=== PATIENT | female | born 1975 | race Caucasian/White ===

== ENCOUNTER 2016-12-13 06:56 | Emergency (ER) | payer OTHER ==
[2016-12-13] MEDS ORDERED: HYDROmorphone 1 MG/ML 1 ML SYRINGE IM STA (07:29)
[2016-12-13] MEDS ORDERED: IBUPROFEN 600 MG TAB PO STA (07:29)
[2016-12-13] MEDS ORDERED: ONDANSETRON 4 MG/2 ML VIAL IM STA (07:29)
--- NOTE | 2016-12-13 07:30 | ED ---
General Adult HPI - General Chief complaint: Extremity Injury, Lower Stated complaint: fall Time Seen by Provider: 12/13/16 07:00 Source: patient, family, RN notes reviewed Mode of arrival: wheelchair Limitations: physical limitation - History of Present Illness Initial comments: This is a 41-year-old female presents emergency room complaining of left ankle pain. Patient states she twisted it yesterday at in her daughter's driveway. Patient states she slipped and twisted it medially. The swelling occurred on the lateral aspect is very tender to touch. Patient denies any foot pain patient denies any hip or any other pain. - Related Data Home Medications Medication Instructions Recorded Confirmed Citalopram Hydrobromide [CeleXA] 20 mg PO DAILY 12/25/13 12/25/13 Methylphenidate HCl [Ritalin] 10 mg PO AC-TID 12/25/13 12/25/13 risperiDONE [RisperDAL] 2 mg PO DAILY 12/25/13 12/25/13 Previous Rx's Medication Instructions Recorded Hydrocodone/Acetaminophen [[place] 1 each PO Q4HR PRN #20 tab 12/13/16 5-325] Ibuprofen [Motrin] 600 mg PO Q6HR PRN #20 tab 12/13/16 Allergies Allergy/AdvReac Type Severity Reaction Status Date / Time codeine Allergy Nausea & Verified 12/13/16 07:05 Vomiting Review of Systems ROS Statement: Those systems with pertinent positive or pertinent negative responses have been documented in the HPI. ROS Other: All systems not noted in ROS Statement are negative. Past Medical History Past Medical History: No Reported History History of Any Multi-Drug Resistant Organisms: None Reported Past Surgical History: Section Past Psychological History: Anxiety, Depression Smoking Status: Current every day smoker Past Alcohol Use History: Rare Past Drug Use History: None Reported General Exam - General Exam Comments Initial Comments: GENERAL Patient is well-developed and well-nourished. Patient is in mild distress. EYES Patient's pupils are equal and round. Extraocular motion is intact SKIN Unremarkable NEURO The patient is alert and oriented 3 PYSCH Patient has normal interpersonal interactions. MUSCULOSKELETAL Patient's ankle is tender to on the lateral malleolus and swollen. Limitations: physical limitation Course Vital Signs 12/13/16 07:01 Temperature 98.3 F Pulse Rate 84 Respiratory 16 Rate Blood Pressure 124/79 O2 Sat by Pulse 98 Oximetry Procedures - Orthopedic Splinting/Casting Injury #1 Side: left Lower Extremity Injury Location: ankle Lower Extremity Immobilizer: posterior splint (This is a short leg splint) Medical Decision Making - Medical Decision Making Patient's x-ray shows a distal fibula fracture on the lateral malleolus Disposition Clinical Impression: Fracture of fibula, distal Disposition: HOME SELF-CARE Condition: Good Instructions: Ankle Fracture (ED) Additional Instructions: Patient should follow-up with orthopedics. Prescriptions: Hydrocodone/Acetaminophen [[place] 5-325] 1 each PO Q4HR PRN #20 tab PRN Reason: Pain Ibuprofen [Motrin] 600 mg PO Q6HR PRN #20 tab PRN Reason: For pain Referrals: Gorge Alvarez MD [Primary Care Provider] - 1-2 days
--- NOTE | 2016-12-13 08:24 | XR ---
EXAMINATION TYPE: XR ankle complete LT , 3 VIEWS DATE OF EXAM ORDERED: 12/13/2016 HISTORY: Pain. COMPARISON: None. FINDINGS: There is moderate soft tissue swelling adjacent to the lateral malleolus. There is a sligh t cortical irregularity involving the distal fibula. No definite cortical break is seen. No joint eff usion is seen. There is a small, plantar calcaneal spur. IMPRESSION: 1. SOFT TISSUE SWELLING. 2. MILD CORTICAL IRREGULARITY ADJACENT TO THE DISTAL FIBULA. PLEASE CORRELATE CLINICALLY TO EXCLUDE A N UNDISPLACED FRACTURE. 3. PLANTAR CALCANEAL SPUR.
[2016-12-13 08:48] VITALS: BP 113/61; PULSE 70; RESP 18; TEMP 98
== END 2016-12-13 08:48 | disposition home or self-care (01) ==
LOC: EC 06:56
DX: S82.65XA Nondisplaced fracture of lateral malleolus of left fibula, initial encounter for closed fracture (principal); F32.9 Major depressive disorder, single episode, unspecified; F41.9 Anxiety disorder, unspecified; F17.200 Nicotine dependence, unspecified, uncomplicated; Z79.899 Other long term (current) drug therapy; Z88.5 Allergy status to narcotic agent; W19.XXXA Unspecified fall, initial encounter
CPT/HCPCS: 99283 ×2; 29515 ×2; 96372 ×3; 73610; J2405; J1170

== ENCOUNTER 2017-04-19 07:27 | Observation (INO) | payer OTHER ==
[2017-04-19] MEDS ORDERED: ASPIRIN 81 MG PO STA (07:57)
[2017-04-19] MEDS ORDERED: NITROGLYCERIN SL TABS 0.4 MG TAB SUBLINGUAL STA ×3 (07:57)
--- NOTE | 2017-04-19 07:59 | ED ---
General Adult HPI - General Chief complaint: Chest Pain Stated complaint: CHEST TIGHT Time Seen by Provider: 04/19/17 07:53 Source: patient, RN notes reviewed Mode of arrival: wheelchair Limitations: no limitations - History of Present Illness Initial comments: Patient is a pleasant 41-year-old female presenting to the emergency department complaining of chest discomfort. Onset of symptoms was a couple of days ago. Symptoms seemed to improve yesterday and then returned again this morning. Patient has pressure in her chest. No radiation. There is some associated dyspnea and lightheadedness and nausea. No vomiting. No diaphoresis. Symptoms do worsen with exertion. No history of similar symptoms previously. - Related Data Home Medications Medication Instructions Recorded Confirmed Methylphenidate HCl [Ritalin] 10 mg PO AC-TID 12/25/13 04/19/17 ALPRAZolam [Xanax] 0.5 mg PO TID PRN 04/19/17 04/19/17 QUEtiapine [SEROquel] 50 mg PO HS 04/19/17 04/19/17 Previous Rx's Medication Instructions Recorded Ibuprofen [Motrin] 600 mg PO Q6HR PRN #20 tab 12/13/16 Allergies Allergy/AdvReac Type Severity Reaction Status Date / Time codeine Allergy Nausea & Verified 04/19/17 08:10 Vomiting Review of Systems ROS Statement: Those systems with pertinent positive or pertinent negative responses have been documented in the HPI. ROS Other: All systems not noted in ROS Statement are negative. Constitutional: Denies: fever Eyes: Denies: eye pain ENT: Denies: ear pain Respiratory: Reports: dyspnea Cardiovascular: Reports: chest pain Endocrine: Denies: fatigue Gastrointestinal: Reports: nausea. Denies: abdominal pain, vomiting Genitourinary: Denies: dysuria Musculoskeletal: Denies: back pain Skin: Denies: rash Neurological: Denies: weakness Past Medical History Past Medical History: No Reported History History of Any Multi-Drug Resistant Organisms: None Reported Past Surgical History: Section Past Psychological History: Anxiety, Depression Smoking Status: Current every day smoker Past Alcohol Use History: Rare Past Drug Use History: None Reported General Exam Limitations: no limitations General appearance: alert, in no apparent distress Head exam: Present: atraumatic Eye exam: Present: normal appearance, PERRL ENT exam: Present: normal oropharynx Neck exam: Present: normal inspection Respiratory exam: Present: normal lung sounds bilaterally. Absent: chest wall tenderness Cardiovascular Exam: Present: regular rate, normal rhythm Expanded Peripheral pulses: 2+: Radial (R), Radial (L), Dorsalis Pedis (R), Dorsalis Pedis (L) GI/Abdominal exam: Present: soft. Absent: tenderness Extremities exam: Present: normal inspection. Absent: pedal edema, calf tenderness Neurological exam: Present: alert Psychiatric exam: Present: normal affect, normal mood Skin exam: Present: normal color Course Vital Signs 04/19/17 04/19/17 07:33 08:40 Temperature 97.0 F L Pulse Rate 85 66 Respiratory 18 18 Rate Blood Pressure 145/70 116/70 O2 Sat by Pulse 100 100 Oximetry EKG Findings - EKG Comments: EKG Findings:: Sinus rhythm 74. MA 106. QRS 86. QT 412. QTC 457. Normal axis. No acute ST change. Normal QRS. Medical Decision Making - Medical Decision Making Patient reevaluated and resting comfortably in bed. Symptoms have improved however not completely resolved and are mild at this time following nitroglycerin. Patient and family updated on results and plan. Case was discussed in detail with Dr. Alvarez, who will admit his patient. - Lab Data Result diagrams: 04/19/17 08:00 04/19/17 08:00 Lab Results 04/19/17 04/19/17 04/19/17 Range/Units 08:00 08:00 08:00 WBC 9.9 (3.8-10.6) k/uL RBC 4.53 (3.80-5.40) m/uL Hgb 14.2 (11.4-16.0) gm/dL Hct 44.1 (34.0-46.0) % MCV 97.6 (80.0-100.0) fL MCH 31.4 (25.0-35.0) pg MCHC 32.2 (31.0-37.0) g/dL RDW 12.4 (11.5-15.5) % Plt Count 313 (150-450) k/uL Neutrophils % 79 % Lymphocytes % 15 % Monocytes % 4 % Eosinophils % 1 % Basophils % 0 % Neutrophils # 7.8 H (1.3-7.7) k/uL Lymphocytes # 1.5 (1.0-4.8) k/uL Monocytes # 0.4 (0-1.0) k/uL Eosinophils # 0.1 (0-0.7) k/uL Basophils # 0.0 (0-0.2) k/uL PT (9.0-12.0) sec INR (<1.2) APTT (22.0-30.0) sec D-Dimer (<0.60) mg/L FEU Sodium 141 (137-145) mmol/L Potassium 4.1 (3.5-5.1) mmol/L Chloride 107 (98-107) mmol/L Carbon Dioxide 20 L (22-30) mmol/L Anion Gap 14 mmol/L BUN 14 (7-17) mg/dL Creatinine 0.63 (0.52-1.04) mg/dL Est GFR (MDRD) Af Amer >60 (>60 ml/min/1.73 sqM) Est GFR (MDRD) Non-Af >60 (>60 ml/min/1.73 sqM) Glucose 98 (74-99) mg/dL Calcium 9.7 (8.4-10.2) mg/dL Magnesium 1.9 (1.6-2.3) mg/dL Total Bilirubin 0.4 (0.2-1.3) mg/dL AST 16 (14-36) U/L ALT 20 (9-52) U/L Alkaline Phosphatase 111 (38-126) U/L Total Creatine Kinase 63 (30-135) U/L CK-MB (CK-2) 0.2 (0.0-2.4) ng/mL CK-MB (CK-2) Rel Index 0.3 Troponin I <0.012 (0.000-0.034) ng/mL NT-Pro-B Natriuret Pep pg/mL Total Protein 7.3 (6.3-8.2) g/dL Albumin 4.2 (3.5-5.0) g/dL 04/19/17 04/19/17 Range/Units 08:00 08:00 WBC (3.8-10.6) k/uL RBC (3.80-5.40) m/uL Hgb (11.4-16.0) gm/dL Hct (34.0-46.0) % MCV (80.0-100.0) fL MCH (25.0-35.0) pg MCHC (31.0-37.0) g/dL RDW (11.5-15.5) % Plt Count (150-450) k/uL Neutrophils % % Lymphocytes % % Monocytes % % Eosinophils % % Basophils % % Neutrophils # (1.3-7.7) k/uL Lymphocytes # (1.0-4.8) k/uL Monocytes # (0-1.0) k/uL Eosinophils # (0-0.7) k/uL Basophils # (0-0.2) k/uL PT 9.9 (9.0-12.0) sec INR 1.0 (<1.2) APTT 22.2 (22.0-30.0) sec D-Dimer 0.25 (<0.60) mg/L FEU Sodium (137-145) mmol/L Potassium (3.5-5.1) mmol/L Chloride (98-107) mmol/L Carbon Dioxide (22-30) mmol/L Anion Gap mmol/L BUN (7-17) mg/dL Creatinine (0.52-1.04) mg/dL Est GFR (MDRD) Af Amer (>60 ml/min/1.73 sqM) Est GFR (MDRD) Non-Af (>60 ml/min/1.73 sqM) Glucose (74-99) mg/dL Calcium (8.4-10.2) mg/dL Magnesium (1.6-2.3) mg/dL Total Bilirubin (0.2-1.3) mg/dL AST (14-36) U/L ALT (9-52) U/L Alkaline Phosphatase (38-126) U/L Total Creatine Kinase (30-135) U/L CK-MB (CK-2) (0.0-2.4) ng/mL CK-MB (CK-2) Rel Index Troponin I (0.000-0.034) ng/mL NT-Pro-B Natriuret Pep 299 pg/mL Total Protein (6.3-8.2) g/dL Albumin (3.5-5.0) g/dL - Radiology Data Radiology results: image reviewed (Chest x-ray shows no acute process.) Disposition Clinical Impression: Chest pain Disposition: ADMITTED IP TO THIS [facility] Referrals: Gorge Alvarez MD [Primary Care Provider] - 1-2 days Decision Time: 09:21
[2017-04-19 08:12] LABS: Basophils % (A) 0 %; Eosinophils # (A) 0.1 k/uL (0-0.7); Eosinophils % (A) 1 %; HCT 44.1 % (34.0-46.0); HGB 14.2 gm/dL (11.4-16.0); Lymphocytes # (A) 1.5 k/uL (1.0-4.8); Lymphocytes % (A) 15 %; MCH 31.4 pg (25.0-35.0); MCHC 32.2 g/dL (31.0-37.0); MCV 97.6 fL (80.0-100.0); Mean Platelet Volume 7.5; Monocytes # (A) 0.4 k/uL (0-1.0); Monocytes % (A) 4 %; Neutrophils # (A) 7.8 k/uL (1.3-7.7); Neutrophils % (A) 79 %; Platelet Count 313 k/uL (150-450); RBC 4.53 m/uL (3.80-5.40); RDW 12.4 % (11.5-15.5); WBC 9.9 k/uL (3.8-10.6)
--- NOTE | 2017-04-19 08:25 | XR ---
EXAMINATION TYPE: XR chest 2V DATE OF EXAM: 04/19/2017 COMPARISON: NONE HISTORY: Chest pain, chest tightness and dizziness. TECHNIQUE: Frontal and lateral views of the chest are obtained. FINDINGS: There is no focal air space opacity, pleural effusion, or pneumothorax seen. The cardiac silhouette size is within normal limits. The osseous structures are intact. IMPRESSION: No acute cardiopulmonary process.
[2017-04-19 08:27] LABS: ALT 20 U/L (9-52); AST 16 U/L (14-36); Albumin 4.2 g/dL (3.5-5.0); Alkaline Phosphatase 111 U/L (38-126); Anion Gap 14 mmol/L; Blood Urea Nitrogen 14 mg/dL (7-17); Calcium 9.7 mg/dL (8.4-10.2); Carbon Dioxide 20 mmol/L (22-30); Chloride 107 mmol/L (98-107); Glucose 98 mg/dL (74-99); Magnesium 1.9 mg/dL (1.6-2.3); Sodium 141 mmol/L (137-145); Total Bilirubin 0.4 mg/dL (0.2-1.3); Total Protein 7.3 g/dL (6.3-8.2)
[2017-04-19 08:31] LABS: Potassium 4.1 mmol/L (3.5-5.1)
[2017-04-19 08:40] LABS: Creatine Kinase 63 U/L (30-135); D-Dimer 0.25 mg/L FEU (<0.60); Partial Thromboplastin Time 22.2 sec (22.0-30.0); Prothrombin Time 9.9 sec (9.0-12.0)
[2017-04-19 08:53] LABS: Creatine Kinase MB 0.2 ng/mL (0.0-2.4); Troponin I <0.012 ng/mL (0.000-0.034)
[2017-04-19] MEDS ORDERED: NITROGLYCERIN SL TABS 0.4 MG TAB SUBLINGUAL PRN (09:21)
[2017-04-19 14:43] LABS: Creatine Kinase 47 U/L (30-135)
[2017-04-19 14:54] LABS: Troponin I <0.012 ng/mL (0.000-0.034)
[2017-04-19 14:58] LABS: Creatine Kinase MB <0.2 ng/mL (0.0-2.4)
[2017-04-19] MEDS ORDERED: IBUPROFEN 600 MG TAB PO PRN (15:11)
[2017-04-19] MEDS: NITROGLYCERIN OINT 1 INCH/GM PACKET TOPICAL SCH ×3 (16:54→23:05)
[2017-04-19] MEDS: METHYLPHENIDATE HCL 10 MG TAB PO SCH (17:51)
[2017-04-19] MEDS: ALPRAZolam 0.5 MG TAB PO PRN (19:27)
[2017-04-19 21:20] LABS: Creatine Kinase 47 U/L (30-135)
[2017-04-19 21:32] LABS: Creatine Kinase MB <0.2 ng/mL (0.0-2.4); Troponin I <0.012 ng/mL (0.000-0.034)
[2017-04-19] MEDS ORDERED: ZOLPIDEM 5 MG TAB PO PRN (22:49)
[2017-04-20 04:14] LABS: Cholesterol 195 mg/dL (<200); HDL Cholesterol 59 mg/dL (40-60); LDL Cholesterol,Calculated 121 mg/dL (0-99); Triglycerides 76 mg/dL (<150)
[2017-04-20] MEDS: NITROGLYCERIN OINT 1 INCH/GM PACKET TOPICAL SCH ×2 (05:59→13:22)
--- NOTE | 2017-04-20 07:26 | P.HPIM ---
History of Present Illness H&P Date: 04/20/17 Chief Complaint: Chest pain This is a history of physical and 41-year-old white female who 2-3 days ago was having some intermittent dizziness. 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 However, yesterday, before trying to go to work she had significant substernal chest pressure. No radiation but there was significant statement that the patient felt that there was "elephant" on her chest. The patient had some chills and some mild nausea at that point. No complaint radiation of the pain. She does not state that it one to the left shoulder. However, she is a smoker and has significant family history of premature heart disease in her father who had myocardial infraction at age of 45. We had a long discussion regarding her smoking cessation. ER evaluation did not show overt enzymatic elevation but her pain was relieved by nitroglycerin. Review of Systems Constitutional: Denies chills, Denies fever Eyes: denies blurred vision, denies pain Ears, nose, mouth and throat: Denies headache, Denies sore throat Cardiovascular: Reports chest pain, Denies leg edema Respiratory: Denies cough Gastrointestinal: Denies abdominal pain, Denies diarrhea, Denies nausea, Denies vomiting Musculoskeletal: Denies myalgias Integumentary: Denies pruritus, Denies rash Past Medical History Past Medical History: No Reported History History of Any Multi-Drug Resistant Organisms: None Reported Past Surgical History: Section Additional Past Surgical History / Comment(s): [place] teeth extractions Additional Past Anesthesia/Blood Transfusion Reaction / Comment(s): Pt has never had general anesthesia. Smoking Status: Current every day smoker - Past Family History Mother Additional Family Medical History / Comment(s): Mother has "heart problems". Heart disease runs in the females on mother's side of family. Father Family Medical History: Myocardial Infarction (CA) Additional Family Medical History / Comment(s): Father had a CA at the age of 45yrs. Medications and Allergies Home Medications Medication Instructions Recorded Confirmed Type Methylphenidate HCl [Ritalin] 10 mg PO AC-TID 12/25/13 04/19/17 History Ibuprofen [Motrin] 600 mg PO Q6HR PRN #20 tab 12/13/16 04/19/17 Rx ALPRAZolam [Xanax] 0.5 mg PO TID PRN 04/19/17 04/19/17 History QUEtiapine [SEROquel] 50 mg PO HS 04/19/17 04/19/17 History Allergies Allergy/AdvReac Type Severity Reaction Status Date / Time codeine Allergy Nausea & Verified 04/19/17 08:10 Vomiting Physical Exam Vitals: Vital Signs Temp Pulse Pulse Resp BP BP Pulse Ox 04/20/17 03:57 18 04/20/17 03:55 98.2 F 67 18 103/55 99 04/20/17 00:00 18 04/19/17 22:59 62 18 110/56 99 04/19/17 20:00 18 04/19/17 19:47 98.2 F 58 L 18 115/54 98 04/19/17 15:51 97.8 F 60 17 105/57 98 04/19/17 12:21 97.9 F 70 18 104/57 100 04/19/17 12:00 97.0 F L 61 18 90/57 100 04/19/17 11:58 97.0 F L 61 18 90/57 100 04/19/17 11:00 63 18 108/72 98 04/19/17 09:34 55 L 18 136/73 100 04/19/17 08:40 66 18 116/70 100 04/19/17 07:33 97.0 F L 85 18 145/70 100 Intake and Output 04/19/17 04/20/17 04/20/17 22:59 06:59 14:59 Intake Total 240 Balance 240 Intake: Oral 240 Other: Voiding Method Toilet Toilet # Voids 1 1 - Constitutional General appearance: no acute distress - EENT Eyes: EOMI - Neck Neck: no lymphadenopathy - Respiratory Respiratory: bilateral: CTA - Cardiovascular Rhythm: regular Abnormal Heart Sounds: no S3 Gallop - Gastrointestinal General gastrointestinal: no organomegaly, soft, no tenderness - Integumentary Integumentary: no cellulitis - Neurologic Neurologic: CNII-XII intact, focal deficits Results CBC & Chem 7: 04/19/17 08:00 04/19/17 08:00 Labs: Abnormal Lab Results - Last 24 Hours (Table) 04/19/17 04/19/17 04/19/17 Range/Units 08:00 08:00 08:00 Neutrophils # 7.8 H (1.3-7.7) k/uL Carbon Dioxide 20 L (22-30) mmol/L LDL Cholesterol, Calc 121 H (0-99) mg/dL Thrombosis Risk Factor Assmnt - Choose All That Apply Any of the Below Risk Factors Present?: Yes Each Factor Represents 1 point: Age 41-60 years Other Risk Factors: No Other congenital or acquired thrombophilia - If yes, enter type in comment: No Thrombosis Risk Factor Assessment Total Risk Factor Score: 1 Thrombosis Risk Factor Assessment Level: Low Risk Assessment and Plan (1) Unstable angina Current Visit: Yes Status: Acute Code(s): I20.0 - UNSTABLE ANGINA SNOMED Code(s): 4794401 (2) Cigarette nicotine dependence Current Visit: Yes Status: Acute Code(s): F17.210 - NICOTINE DEPENDENCE, CIGARETTES, UNCOMPLICATED SNOMED Code(s): 82064318 (3) Depression Current Visit: Yes Status: Acute Code(s): F32.9 - MAJOR DEPRESSIVE DISORDER , SINGLE EPISODE, UNSPECIFIED SNOMED Code(s): 39558814 Plan: Given her overall risk factors, question need for cardiac catheterization versus overt nuclear stress testing. Rule out myocardial infraction. Reconcile medications as necessary. See orders otherwise. Time with Patient: Greater than 30
[2017-04-20 07:38] VITALS: BP 97/46; PULSE 57; RESP 16; TEMP 98.1
[2017-04-20] MEDS ORDERED: ASPIRIN 325 MG TAB PO SCH (09:00)
[2017-04-20] MEDS ORDERED: DOBUTamine DRIP for NUC MED 250 MG in DEXTROSE/WATER 1 250ML.BAG IV ONE (09:50)
[2017-04-20] MEDS: METHYLPHENIDATE HCL 10 MG TAB PO SCH ×2 (11:04→13:22)
--- NOTE | 2017-04-20 11:50 | CONS ---
CONSULTATION Mrs. Perez is a 41-year-old female, who is seen for cardiac evaluation. Patient's medical records were reviewed. This patient has a history of depression, patient used to take Celexa before. Recently patient was changed to the Seroquel. Patient gives a history that for last 2 to 3 days she has been having intermittent dizziness and lightheadedness and since yesterday, she has been having intermittent chest discomfort. States the pain is in the substernal area. She feels like there is an elephant sitting on the chest, pain is not related to exertion. Patient has a family history of coronary artery disease and she smokes about half-pack per day. Denies any history of exertional discomfort. PAST MEDICAL HISTORY: Includes history of C-sections, no history of diabetes or hypertension. Patient's home medications include Ritalin, Motrin, Xanax and Seroquel. PHYSICAL EXAMINATION: At present reveals a 41-year-old female, who does not appear to be in any acute distress. Patient's blood pressure is 97/46 mmHg. HEENT examination is negative. Neck is supple. There is no increase in jugular venous pressure. Both the carotid pulses are felt. There is no bruit. Chest is symmetrical. Heart, the PMI is not felt. First and second heart sounds are normal. There is no evidence of any murmur. Lungs are clinically clear to auscultation and percussion. Abdomen is soft. Liver and spleen are not enlarged. Bowel sounds are heard. Extremities, peripheral pulsations are 2+. There is no evidence of any edema or phlebitis. Neurological examination is grossly normal. This patient's EKGs and cardiac enzymes are normal. FINAL IMPRESSION: Clinically, this patient's chest pains are atypical pain. Patient does have a family history of coronary artery disease. Patient's EKGs and cardiac enzymes are normal. Patient will be evaluated with echocardiogram and a stress echocardiographic study. We will also check the patient's lipid panel. If the stress test is negative, patient can be discharged home and we will follow her as an outpatient. MMODL / IJN: [id number] /
[2017-04-20] MEDS: ALPRAZolam 0.5 MG TAB PO PRN (12:05)
--- NOTE | 2017-04-20 12:26 | ECHOS ---
STRESS ECHOCARDIOGRAM INDICATIONS: Chest pain. BASELINE HEART RATE: 62 BASELINE BLOOD PRESSURE: 110/70 MAXIMUM HEART RATE: 150 MAXIMUM BLOOD PRESSURE: 176/100 85% MPHR: 150 100% MPHR: 177 MAXIMUM STAGE REACHED: 4 TOTAL EXERCISE TIME: 9:00 CLINICAL INFORMATION: Patient was given dobutamine infusion according to standard protocol. Peak heart rate of 150 was achieved. Maximum blood pressure 176/100 mmHg was noted. Resting EKG shows normal sinus rhythm with normal OR interval and QRS duration and normal ST-T waves. No ST-segment depression suggestive of ischemia is noted. The baseline echocardiographic images revealed normal left ventricular chamber size with normal left ventricular systolic function. At the peak dose of dobutamine infusion, normal increase in the wall thickness and contractility is noted. FINAL IMPRESSION: 1. This dobutamine stress echocardiographic study is negative for stress-induced ischemia. 2. EKG portion of the stress test is not suggestive of ischemia. MMODL / IJN: [id number] /
--- NOTE | 2017-05-04 18:40 | ECHOF ---
Referral Reason:chest pain MEASUREMENTS -------- HEIGHT: 170.2 cm WEIGHT: 72.6 kg BP: 110/70 RVIDd: 1.8 cm (< 3.3) IVSd: 1.0 cm (0.6 - 1.1) LVIDd: 4.5 cm (3.9 - 5.3) LVPWd: 1.1 cm (0.6 - 1.1) IVSs: 1.3 cm LVIDs: 2.0 cm LVPWs: 1.5 cm LAESV Index (A-L): 12.88 ml/m Ao Diam: 2.9 cm (2.0 - 3.7) AV Cusp: 1.8 cm (1.5 - 2.6) LA Diam: 2.3 cm (2.7 - 3.8) MV EXCURSION: 12.451 mm (> 18.000) MV EF SLOPE: 101 mm/s (70 - 150) EPSS: 0.8 cm MV E Mehul: 0.81 m/s MV DecT: 280 ms MV A Mehul: 0.53 m/s MV E/A Ratio: 1.53 RAP: 5.00 mmHg RVSP: 19.13 mmHg FINDINGS -------- Sinus rhythm. This was a technically adequate study. The left ventricular size is normal. Left ventricular wall thickness is normal. Overall left vent ricular systolic function is normal with, an EF between 55 - 60 %. The right ventricle is normal in size and function. Normal LA size by volume 22+/-6 ml/m2. The right atrium is normal in size. The aortic valve is trileaflet, and appears structurally normal. No aortic stenosis or regurgitation. The mitral valve is normal. There is trace mitral regurgitation. Trace tricuspid regurgitation present. Right ventricular systolic pressure is normal at < 35 mmHg. There is no evidence of pulmonary hypertension. The pulmonic valve is normal. The aortic root size is normal. Normal inferior vena cava with normal inspiratory collapse consistent with estimated right atrial pre ssure of 5 mmHg. The pericardium is normal. There is no pericardial effusion. CONCLUSIONS -------- 1. Sinus rhythm. 2. This was a technically adequate study. 3. The left ventricular size is normal. 4. Left ventricular wall thickness is normal. 5. Overall left ventricular systolic function is normal with, an EF between 55 - 60 %. 6. Normal LA size by volume 22+/-6 ml/m2. 7. The aortic valve is trileaflet, and appears structurally normal. No aortic stenosis or regurgitati on. 8. There is trace mitral regurgitation. 9. Trace tricuspid regurgitation present. 10. Right ventricular systolic pressure is normal at < 35 mmHg. 11. There is no evidence of pulmonary hypertension. 12. The aortic root size is normal. 13. There is no pericardial effusion. EXTRUDER TENDER: Arpit Crespo RDCS
--- NOTE | 2017-05-19 19:57 | P.DS ---
Providers Date of admission: 04/19/17 09:22 Attending physician: Gorge Avlarez Consults: 04/19/17 09:21 Consult Physician Urgent Consulting Provider: Vasyl Dupont Consult Reason/Comments: cp Do you want consulting provider notified?: Yes Primary care physician: Gorge Alvarez - Discharge Diagnosis(es) (1) Unstable angina Status: Acute (2) Cigarette nicotine dependence Status: Acute (3) Depression Status: Acute Hospital Course: This is a discharge from under 41-year-old white female who was essentially admitted for unstable angina. Appropriate cardiac testing was done and with cardiology assistance, the patient was discharged in stable condition to follow- up with me in about 1 week. We had a long discussion regarding tobacco cessation. She will is agreeable to try to decrease this habit. Again, the patient is discharged in stable condition after appropriate cardiac workup to follow-up with me in 7-10 days. Patient Condition at Discharge: Stable Plan - Discharge Summary Discharge Rx Participant: No New Discharge Prescriptions: No Action Methylphenidate HCl [Ritalin] 10 mg PO AC-TID Ibuprofen [Motrin] 600 mg PO Q6HR PRN #20 tab PRN Reason: For pain QUEtiapine [SEROquel] 50 mg PO HS ALPRAZolam [Xanax] 0.5 mg PO TID PRN PRN Reason: Anxiety Discharge Medication List Methylphenidate HCl [Ritalin] 10 mg PO AC-TID 12/25/13 [History] Ibuprofen [Motrin] 600 mg PO Q6HR PRN #20 tab 12/13/16 [Rx] ALPRAZolam [Xanax] 0.5 mg PO TID PRN 04/19/17 [History] QUEtiapine [SEROquel] 50 mg PO HS 04/19/17 [History] Follow up Appointment(s)/Referral(s): Gorge Alvarez MD [Primary Care Provider] - 1 Week [place] Snider MD [STAFF PHYSICIAN] - As Needed Patient Instructions/Handouts: Chest Pain (GEN) Discharge Disposition: HOME SELF-CARE
== END 2017-04-20 14:16 | disposition home or self-care (01) ==
LOC: EC 07:27 → 3OBS 09:22
PROVIDERS: ADMIT Family Medicine; ATTEND Family Medicine
DX: I20.0 Unstable angina (principal); F17.210 Nicotine dependence, cigarettes, uncomplicated; F32.9 Major depressive disorder, single episode, unspecified; Z79.899 Other long term (current) drug therapy; Z88.5 Allergy status to narcotic agent; F41.9 Anxiety disorder, unspecified; R68.83 Chills (without fever); Z82.49 Family history of ischemic heart disease and other diseases of the circulatory system
CPT/HCPCS: 99285; 36415; 93005; 93017; 93306; 93350; 85379; 83880; 80061; 80053; 82550; 82553; 83735; 84484; 85025; 85610; 85730; 71046; G0378 ×2; J1250

== ENCOUNTER 2019-09-15 11:05 | Emergency (ER) | payer OTHER ==
[2019-09-15 11:17] VITALS: TEMP 98.3
[2019-09-15] MEDS ORDERED: FAMOTIDINE 20 MG/2 ML VIAL IV STA (11:43)
[2019-09-15] MEDS ORDERED: SODIUM CHLORIDE 0.9% 1,000 ML IV STA (11:43)
[2019-09-15] MEDS ORDERED: diphenhydrAMINE 50 MG CAP PO STA (11:43)
[2019-09-15] MEDS ORDERED: LORazepam 2 MG/ML INJ IV STA (11:44)
--- NOTE | 2019-09-15 11:47 | ED ---
General Adult HPI - General Chief complaint: Allergic Reaction Stated complaint: vision trouble, lt arm pain Time Seen by Provider: 09/15/19 11:29 Source: patient, RN notes reviewed, old records reviewed Mode of arrival: wheelchair Limitations: no limitations - History of Present Illness Initial comments: Patient is a 43-year-old female who presents emergency department today after receiving a TB test. She states that after receiving her tuberculosis test she started to have some "swelling and numbness tingling in her arms feeling that she was breathing heavily, and felt like throat was closing. She states that she had some blurred or double vision at that time. She called her x- ray who picked her up from work and brought her to the ER. Patient states that she has no significant headache or chest pain at this time. - Related Data Home Medications Medication Instructions Recorded Confirmed ALPRAZolam [Xanax] 0.5 mg PO TID PRN 04/19/17 09/15/19 Albuterol Sulfate [Albuterol 1 - 2 puff PO RT-Q6H PRN 09/15/19 09/15/19 Sulfate Hfa] Methylphenidate HCl [Ritalin] 20 mg PO BID 09/15/19 09/15/19 PARoxetine HCL [Paxil] 20 mg PO DAILY 09/15/19 09/15/19 Allergies Allergy/AdvReac Type Severity Reaction Status Date / Time codeine Allergy Nausea & Verified 09/15/19 12:47 Vomiting Review of Systems ROS Statement: Those systems with pertinent positive or pertinent negative responses have been documented in the HPI. ROS Other: All systems not noted in ROS Statement are negative. Past Medical History Past Medical History: No Reported History History of Any Multi-Drug Resistant Organisms: None Reported Past Surgical History: Section Additional Past Surgical History / Comment(s): [place] teeth extractions Additional Past Anesthesia/Blood Transfusion Reaction / Comment(s): Pt has never had general anesthesia. Past Psychological History: ADD/ADHD, Anxiety, Depression Smoking Status: Current every day smoker Past Alcohol Use History: Rare Past Drug Use History: None Reported - Past Family History Mother Additional Family Medical History / Comment(s): Mother has "heart problems". Heart disease runs in the females on mother's side of family. Father Family Medical History: Myocardial Infarction ([place]) Additional Family Medical History / Comment(s): Father had a [place] at the age of 45yrs. General Exam - General Exam Comments Initial Comments: 43-year-old female with shallow rapid breathing. Appears anxious. Limitations: no limitations General appearance: alert, in no apparent distress Head exam: Present: atraumatic, normocephalic, normal inspection Eye exam: Present: normal appearance, PERRL, EOMI. Absent: scleral icterus, conjunctival injection, periorbital swelling ENT exam: Present: normal exam, mucous membranes moist Neck exam: Present: normal inspection. Absent: tenderness, meningismus, lymphadenopathy Respiratory exam: Present: normal lung sounds bilaterally. Absent: respiratory distress, wheezes, rales, rhonchi, stridor Cardiovascular Exam: Present: regular rate, normal rhythm, normal heart sounds. Absent: systolic murmur, diastolic murmur, rubs, gallop, clicks GI/Abdominal exam: Present: soft, normal bowel sounds. Absent: distended, tenderness, guarding, rebound, rigid Back exam: Present: normal inspection Neurological exam: Present: alert, oriented X3, CN II-XII intact Psychiatric exam: Present: normal affect, normal mood Skin exam: Present: warm, dry, intact, normal color. Absent: rash Course Vital Signs 09/15/19 09/15/19 09/15/19 11:15 11:17 11:32 Temperature 98.3 F Pulse Rate 93 Respiratory 28 H 18 20 Rate Blood Pressure 186/90 O2 Sat by Pulse 100 Oximetry 09/15/19 09/15/19 09/15/19 12:17 13:00 14:00 Temperature Pulse Rate 72 Respiratory 20 18 18 Rate Blood Pressure 125/79 O2 Sat by Pulse 99 99 99 Oximetry 09/15/19 15:00 Temperature Pulse Rate 87 Respiratory 18 Rate Blood Pressure 127/88 O2 Sat by Pulse 99 Oximetry - Reevaluation(s) Reevaluation #1: 09/15/19 13:35 Octreotide Patient and Patient stating that her symptoms of arm tingling numbness and swelling are improved however she still complaining of some changes and blurriness to her vision. Visual acuity was obtained and was 20/20 in the left and 20/15 on the right. Patient had continued to state that she feels that her vision is blurry in color changes. I discussed her symptoms seem initially. Anxiety. I discussed with Dr. Deemer with them and stated if she does continue to complain of some visual changes except would be doing a CT of the brain. Medical Decision Making - Lab Data Result diagrams: 09/15/19 12:01 09/15/19 12:25 Lab Results 09/15/19 09/15/19 09/15/19 Range/Units 12: 12:25 12:25 WBC 7.3 (3.8-10.6) k/uL RBC 4.24 (3.80-5.40) m/uL Hgb 14.2 (11.4-16.0) gm/dL Hct 40.6 (34.0-46.0) % MCV 95.6 (80.0-100.0) fL MCH 33.4 (25.0-35.0) pg MCHC 35.0 (31.0-37.0) g/dL RDW 14.4 (11.5-15.5) % Plt Count 302 (150-450) k/uL Neutrophils % 57 % Lymphocytes % 34 % Monocytes % 4 % Eosinophils % 2 % Basophils % 0 % Neutrophils # 4.2 (1.3-7.7) k/uL Lymphocytes # 2.5 (1.0-4.8) k/uL Monocytes # 0.3 (0-1.0) k/uL Eosinophils # 0.2 (0-0.7) k/uL Basophils # 0.0 (0-0.2) k/uL Sodium 136 L (137-145) mmol/L Potassium 4.3 (3.5-5.1) mmol/L Chloride 109 H (98-107) mmol/L Carbon Dioxide 19 L (22-30) mmol/L Anion Gap 8 mmol/L BUN 9 (7-17) mg/dL Creatinine 0.47 L (0.52-1.04) mg/dL Est GFR (CKD-EPI)AfAm >90 (>60 ml/min/1.73 sqM) Est GFR (CKD-EPI)NonAf >90 (>60 ml/min/1.73 sqM) Glucose 94 (74-99) mg/dL Calcium 9.3 (8.4-10.2) mg/dL Troponin I <0.012 (0.000-0.034) ng/mL 09/15/19 12:08 EKG shows normal sinus rhythm voltage criteria for LVH. Abnormal EKG. Ventricular rate of 77 bpm. Was 142 ms. QRS duration is 84 ms. QT QTc is 414/460 ms. Disposition Clinical Impression: Visual color changes, Adverse reaction to vaccine Disposition: HOME SELF-CARE Condition: Stable Instructions (If sedation given, give patient instructions): Blurred Vision (ED) Additional Instructions: Patient has a follow-up with Dr. Bearden on Wednesday. Return to the emergency department if any alarming signs or symptoms occur. Is patient prescribed a controlled substance at d/c from ED?: No Referrals: Gorge Alvarez MD [Primary Care Provider] - 1-2 days Nilam Bearden MD [STAFF PHYSICIAN] - 1-2 days Time of Disposition: 15:42
[2019-09-15 12:20] LABS: Basophils % (A) 0 %; Eosinophils # (A) 0.2 k/uL (0-0.7); Eosinophils % (A) 2 %; HCT 40.6 % (34.0-46.0); HGB 14.2 gm/dL (11.4-16.0); Lymphocytes # (A) 2.5 k/uL (1.0-4.8); Lymphocytes % (A) 34 %; MCH 33.4 pg (25.0-35.0); MCV 95.6 fL (80.0-100.0); Mean Platelet Volume 7.8; Monocytes # (A) 0.3 k/uL (0-1.0); Monocytes % (A) 4 %; Neutrophils # (A) 4.2 k/uL (1.3-7.7); Neutrophils % (A) 57 %; Platelet Count 302 k/uL (150-450); RBC 4.24 m/uL (3.80-5.40); RDW 14.4 % (11.5-15.5); WBC 7.3 k/uL (3.8-10.6)
[2019-09-15 12:48] LABS: African American GFR (CKD) >90 (>60 ml/min/1.73 sqM); Anion Gap 8 mmol/L; Blood Urea Nitrogen 9 mg/dL (7-17); Calcium 9.3 mg/dL (8.4-10.2); Carbon Dioxide 19 mmol/L (22-30); Chloride 109 mmol/L (98-107); Glucose 94 mg/dL (74-99); Non-African American GFR(CKD) >90 (>60 ml/min/1.73 sqM); Potassium 4.3 mmol/L (3.5-5.1); Sodium 136 mmol/L (137-145)
--- NOTE | 2019-09-15 14:19 | CT ---
EXAMINATION TYPE: CT brain wo con DATE OF EXAM: 09/15/2019 HISTORY: visual disturbance CT DLP: 1055.4 mGycm. Automated Exposure Control for Dose Reduction was Utilized. TECHNIQUE: CT scan of the head is performed without contrast. COMPARISON: None FINDINGS: There is no acute intracranial hemorrhage, midline shift, or mass effect identified. Brain parenchyma appears normal. The ventricles, sulci, and cisterns are normal in size and configuration. No extra-axial fluid collection. Bones and extracranial soft tissues are intact. The globes are gross ly symmetric. Visualized sinuses and mastoid air cells are clear. IMPRESSION: No acute cranial hemorrhage, midline shift, or mass effect.
[2019-09-15 14:43] VITALS: RESP 18
[2019-09-15 15:12] VITALS: BP 127/88; PULSE 87
== END 2019-09-15 16:05 | disposition home or self-care (01) ==
LOC: EC 11:05
DX: T50.Z95A Adverse effect of other vaccines and biological substances, initial encounter (principal); F41.9 Anxiety disorder, unspecified; F32.9 Major depressive disorder, single episode, unspecified; F90.9 Attention-deficit hyperactivity disorder, unspecified type; F17.200 Nicotine dependence, unspecified, uncomplicated; Z79.899 Other long term (current) drug therapy; Z88.5 Allergy status to narcotic agent
CPT/HCPCS: 99284; 96374; 96375; 96361; 36415; 93005; 80048; 84484; 85025; 70450; J2060

== ENCOUNTER 2019-11-27 09:28 | Emergency (ER) | payer OTHER ==
[2019-11-27 09:39] VITALS: RESP 18
[2019-11-27] MEDS ORDERED: SODIUM CHLORIDE 0.9% 1,000 ML IV ONE (09:48)
[2019-11-27] MEDS ORDERED: SODIUM CHLORIDE 0.9% 500 ML 500 ML IV ONE (09:48)
[2019-11-27] MEDS ORDERED: ONDANSETRON 4 MG/2 ML VIAL IVP STA (09:48)
--- NOTE | 2019-11-27 09:50 | ED ---
General Adult HPI - General Chief complaint: Nausea/Vomiting/Diarrhea Stated complaint: sore throat/diarrhea/vomiting Time Seen by Provider: 11/27/19 09:35 Source: patient, RN notes reviewed, old records reviewed Mode of arrival: ambulatory Limitations: no limitations - History of Present Illness Initial comments: This is a 44-year-old female presents emergency Department complaining of nausea vomiting diarrhea as well as a sore throat. Patient states started last Wednesday and it started with sore throat and diarrhea. 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 Patient also states that she has no code by the patient at the home at this time. Patient states on Wednesday she was feeling better but then again her diarrhea started up on Wednesday today and this morning about 2 AM she did vomit. Denies any headache patient denies numbness weakness. Patient denies chest pain or palpitations. Patient denies any difficulty breathing. Patient states her cough has improved since last Wednesday. She states now her abdomen feels fine with occasional cramping - Related Data Home Medications Medication Instructions Recorded Confirmed ALPRAZolam [Xanax] 0.5 mg PO TID PRN 04/19/17 11/27/19 Methylphenidate HCl [Ritalin] 20 mg PO BID 09/15/19 11/27/19 PARoxetine HCL [Paxil] 20 mg PO DAILY 09/15/19 11/27/19 Diclofenac Sodium [Diclofenac 2 drop BOTH EYES BID 11/27/19 11/27/19 Sodium 0.1% Ophth Soln] guaiFENesin SYRUP 100MG/5ML 400 mg PO Q12H PRN 11/27/19 11/27/19 [Robitussin] Allergies Allergy/AdvReac Type Severity Reaction Status Date / Time codeine Allergy Nausea & Verified 11/27/19 10:30 Vomiting Review of Systems ROS Statement: Those systems with pertinent positive or pertinent negative responses have been documented in the HPI. ROS Other: All systems not noted in ROS Statement are negative. Past Medical History Past Medical History: No Reported History History of Any Multi-Drug Resistant Organisms: None Reported Past Surgical History: Section Additional Past Surgical History / Comment(s): [place] teeth extractions Additional Past Anesthesia/Blood Transfusion Reaction / Comment(s): Pt has never had general anesthesia. Past Psychological History: ADD/ADHD, Anxiety, Depression Smoking Status: Current every day smoker Past Alcohol Use History: Rare Past Drug Use History: None Reported - Past Family History Mother Additional Family Medical History / Comment(s): Mother has "heart problems". Heart disease runs in the females on mother's side of family. Father Family Medical History: Myocardial Infarction ([place]) Additional Family Medical History / Comment(s): Father had a [place] at the age of 45yrs. General Exam - General Exam Comments Initial Comments: GENERAL: Patient is well-developed and well-nourished. Patient is nontoxic and well- hydrated and is in mild distress. ENT: Neck is soft and supple. No significant lymphadenopathy is noted. Oropharynx is clear but mildly erythematous. Moist mucous membranes. Neck has full range of motion without eliciting any pain. EYES: The sclera were anicteric and conjunctiva were pink and moist. Extraocular movements were intact and pupils were equal round and reactive to light. Eyelids were unremarkable. PULMONARY: Unlabored respirations. Good breath sounds bilaterally. No audible rales rhonchi or wheezing was noted. CARDIOVASCULAR: There is a regular rate and rhythm without any murmurs gallops or rubs. ABDOMEN: Soft and nontender with normal bowel sounds. SKIN: Skin is clear with no lesions or rashes and otherwise unremarkable. NEUROLOGIC: Patient is alert and oriented x3. Cranial nerves II through XII are grossly intact. Motor and sensory are also intact. Normal speech, volume and content. Symmetrical smile. MUSCULOSKELETAL: Normal extremities with adequate strength and full range of motion. No lower extremity swelling or edema. No calf tenderness. LYMPHATICS: No significant lymphadenopathy is noted PSYCHIATRIC: Normal psychiatric evaluation. Limitations: no limitations Course Vital Signs 11/27/19 09:34 Temperature 97.6 F Pulse Rate 100 Respiratory 18 Rate Blood Pressure 168/107 O2 Sat by Pulse 98 Oximetry Medical Decision Making - Medical Decision Making I will back into reevaluate the patient she was feeling considerably better. - Lab Data Result diagrams: 11/27/19 10:06 11/27/19 10: Lab Results 11/27/19 11/27/19 11/27/19 Range/Units 10: 10:06 10:06 WBC 9.9 (3.8-10.6) k/uL RBC 4.84 (3.80-5.40) m/uL Hgb 15.1 (11.4-16.0) gm/dL Hct 44.9 (34.0-46.0) % MCV 92.8 (80.0-100.0) fL MCH 31.2 (25.0-35.0) pg MCHC 33.6 (31.0-37.0) g/dL RDW 13.1 (11.5-15.5) % Plt Count 324 (150-450) k/uL Neutrophils % 68 % Lymphocytes % 25 % Monocytes % 5 % Eosinophils % 1 % Basophils % 0 % Neutrophils # 6.7 (1.3-7.7) k/uL Lymphocytes # 2.5 (1.0-4.8) k/uL Monocytes # 0.5 (0-1.0) k/uL Eosinophils # 0.1 (0-0.7) k/uL Basophils # 0.0 (0-0.2) k/uL Sodium 134 L (137-145) mmol/L Potassium 4.0 (3.5-5.1) mmol/L Chloride 105 (98-107) mmol/L Carbon Dioxide 20 L (22-30) mmol/L Anion Gap 9 mmol/L BUN 12 (7-17) mg/dL Creatinine 0.55 (0.52-1.04) mg/dL Est GFR (CKD-EPI)AfAm >90 (>60 ml/min/1.73 sqM) Est GFR (CKD-EPI)NonAf >90 (>60 ml/min/1.73 sqM) Glucose 117 H (74-99) mg/dL Calcium 9.3 (8.4-10.2) mg/dL Total Bilirubin 0.7 (0.2-1.3) mg/dL AST 63 H (14-36) U/L ALT 33 (4-34) U/L Alkaline Phosphatase 134 H (38-126) U/L Total Protein 7.8 (6.3-8.2) g/dL Albumin 4.2 (3.5-5.0) g/dL Heterophile Antibody Negative (Negative) Group A Strep Rapid (Negative) 11/27/19 Range/Units 10:06 WBC (3.8-10.6) k/uL RBC (3.80-5.40) m/uL Hgb (11.4-16.0) gm/dL Hct (34.0-46.0) % MCV (80.0-100.0) fL MCH (25.0-35.0) pg MCHC (31.0-37.0) g/dL RDW (11.5-15.5) % Plt Count (150-450) k/uL Neutrophils % % Lymphocytes % % Monocytes % % Eosinophils % % Basophils % % Neutrophils # (1.3-7.7) k/uL Lymphocytes # (1.0-4.8) k/uL Monocytes # (0-1.0) k/uL Eosinophils # (0-0.7) k/uL Basophils # (0-0.2) k/uL Sodium (137-145) mmol/L Potassium (3.5-5.1) mmol/L Chloride (98-107) mmol/L Carbon Dioxide (22-30) mmol/L Anion Gap mmol/L BUN (7-17) mg/dL Creatinine (0.52-1.04) mg/dL Est GFR (CKD-EPI)AfAm (>60 ml/min/1.73 sqM) Est GFR (CKD-EPI)NonAf (>60 ml/min/1.73 sqM) Glucose (74-99) mg/dL Calcium (8.4-10.2) mg/dL Total Bilirubin (0.2-1.3) mg/dL AST (14-36) U/L ALT (4-34) U/L Alkaline Phosphatase (38-126) U/L Total Protein (6.3-8.2) g/dL Albumin (3.5-5.0) g/dL Heterophile Antibody (Negative) Group A Strep Rapid Negative (Negative) Disposition Clinical Impression: Gastroenteritis Disposition: HOME SELF-CARE Condition: Good Instructions (If sedation given, give patient instructions): Gastroenteritis (DC) Is patient prescribed a controlled substance at d/c from ED?: No Referrals: Gorge Alvarez MD [Primary Care Provider] - 1-2 days Time of Disposition: 11:25
--- NOTE | 2019-11-27 10:21 | XR ---
EXAMINATION TYPE: XR chest 2V DATE OF EXAM: 11/27/2019 COMPARISON: 04/19/2017 TECHNIQUE: PA and lateral views submitted. HISTORY: Difficulty breathing FINDINGS: The lungs are clear and there is no pneumothorax, pleural effusion, or focal pneumonia. No overt emily lure. Hypertrophic and degenerative change of the spine. Biapical pleural thickening. IMPRESSION: 1. No acute process.
[2019-11-27 10:34] LABS: Basophils % (A) 0 %; Eosinophils # (A) 0.1 k/uL (0-0.7); Eosinophils % (A) 1 %; HCT 44.9 % (34.0-46.0); HGB 15.1 gm/dL (11.4-16.0); Lymphocytes # (A) 2.5 k/uL (1.0-4.8); Lymphocytes % (A) 25 %; MCH 31.2 pg (25.0-35.0); MCHC 33.6 g/dL (31.0-37.0); MCV 92.8 fL (80.0-100.0); Mean Platelet Volume 7.5; Monocytes # (A) 0.5 k/uL (0-1.0); Monocytes % (A) 5 %; Neutrophils # (A) 6.7 k/uL (1.3-7.7); Neutrophils % (A) 68 %; Platelet Count 324 k/uL (150-450); RBC 4.84 m/uL (3.80-5.40); RDW 13.1 % (11.5-15.5); WBC 9.9 k/uL (3.8-10.6)
[2019-11-27 10:35] LABS: ALT 33 U/L (4-34); AST 63 U/L (14-36); African American GFR (CKD) >90 (>60 ml/min/1.73 sqM); Albumin 4.2 g/dL (3.5-5.0); Alkaline Phosphatase 134 U/L (38-126); Anion Gap 9 mmol/L; Blood Urea Nitrogen 12 mg/dL (7-17); Calcium 9.3 mg/dL (8.4-10.2); Carbon Dioxide 20 mmol/L (22-30); Chloride 105 mmol/L (98-107); Glucose 117 mg/dL (74-99); Non-African American GFR(CKD) >90 (>60 ml/min/1.73 sqM); Sodium 134 mmol/L (137-145); Total Bilirubin 0.7 mg/dL (0.2-1.3); Total Protein 7.8 g/dL (6.3-8.2)
[2019-11-27] MEDS ORDERED: ONDANSETRON 4 MG ODT STARTER PACK 2 TAB BTL PO STA (11:25)
[2019-11-27 11:38] VITALS: BP 142/92; PULSE 78; TEMP 98.3
== END 2019-11-27 11:39 | disposition home or self-care (01) ==
LOC: EC 09:28
DX: K52.9 Noninfective gastroenteritis and colitis, unspecified (principal); F41.9 Anxiety disorder, unspecified; F32.9 Major depressive disorder, single episode, unspecified; F90.9 Attention-deficit hyperactivity disorder, unspecified type; F17.200 Nicotine dependence, unspecified, uncomplicated; Z79.1 Long term (current) use of non-steroidal anti-inflammatories (NSAID); Z79.899 Other long term (current) drug therapy; Z88.5 Allergy status to narcotic agent
CPT/HCPCS: 36415; 80053; 85025; 86308; 87081; 87430; 71046; 99284; 96374; 96361; J2405; S0119

== ENCOUNTER 2020-08-12 06:34 | Emergency (ER) | payer OTHER ==
[2020-08-12 06:49] VITALS: BP 120/79; PULSE 78; RESP 18; TEMP 98
[2020-08-12] MEDS ORDERED: KETOROLAC 15 MG/ML 1 ML VIAL IM STA (07:01)
--- NOTE | 2020-08-12 07:20 | ED ---
Fall HPI - General Chief Complaint: Fall Stated Complaint: Fall,Rib Pain Time Seen by Provider: 08/12/20 06:54 Source: patient Mode of arrival: wheelchair - History of Present Illness Initial Comments: Patient is a 44-year-old female presenting to the emergency department after a slip and fall 2 days ago. Patient states Wednesday morning she slipped [place] the dock and landed onto her boat, hitting the left of her ribs. Patient states over the past 24 hours she has had very little sleep secondary to spasming and increased pain with inhalation. She denies hitting her head, she denies any nausea or vomiting, she denies any other injuries from this fall except for the rib injury. She has no further complaints at this time. Upon arrival to the ER her vitals are stable. - Related Data Home Medications Medication Instructions Recorded Confirmed ALPRAZolam [Xanax] 0.5 mg PO TID PRN 04/19/17 11/27/19 Methylphenidate HCl [Ritalin] 20 mg PO BID 09/15/19 11/27/19 PARoxetine HCL [Paxil] 20 mg PO DAILY 09/15/19 11/27/19 Diclofenac Sodium [Diclofenac 2 drop BOTH EYES BID 11/27/19 11/27/19 Sodium 0.1% Ophth Soln] guaiFENesin SYRUP 100MG/5ML 400 mg PO Q12H PRN 11/27/19 11/27/19 [Robitussin] Previous Rx's Medication Instructions Recorded Cyclobenzaprine [Flexeril] 5 mg PO BID #15 tablet 08/12/20 Allergies Allergy/AdvReac Type Severity Reaction Status Date / Time codeine Allergy Nausea & Verified 08/12/20 06:49 Vomiting Review of Systems ROS Statement: Those systems with pertinent positive or pertinent negative responses have been documented in the HPI. ROS Other: All systems not noted in ROS Statement are negative. Past Medical History Past Medical History: No Reported History History of Any Multi-Drug Resistant Organisms: None Reported Past Surgical History: Section Additional Past Surgical History / Comment(s): [place] teeth extractions Additional Past Anesthesia/Blood Transfusion Reaction / Comment(s): Pt has never had general anesthesia. Past Psychological History: ADD/ADHD, Anxiety, Depression Smoking Status: Current every day smoker Past Alcohol Use History: Rare Past Drug Use History: None Reported - Past Family History Mother Additional Family Medical History / Comment(s): Mother has "heart problems". Heart disease runs in the females on mother's side of family. Father Family Medical History: Myocardial Infarction ([place]) Additional Family Medical History / Comment(s): Father had a [place] at the age of 45yrs. General Exam - General Exam Comments Initial Comments: GENERAL: Patient is well-developed and well-nourished. Patient is nontoxic and in moderate distress. HEAD: Atraumatic, normocephalic. EYES: Pupils equal round and reactive to light, extraocular movements intact, sclera anicteric, conjunctiva are normal. Eyelids were unremarkable. ENT: TMs normal, nares patent, oropharynx clear without exudates. Moist mucous membranes. NECK: Normal range of motion, supple without lymphadenopathy or JVD. LUNGS: Unlabored respirations. Breath sounds clear to auscultation bilaterally and equal. No wheezes rales or rhonchi. HEART: Regular rate and rhythm without murmurs, rubs or gallops. ABDOMEN: Soft, nontender, normoactive bowel sounds. No guarding, no rebound. No masses appreciated. : Deferred MUSCULOSKELETAL: Normal extremities with adequate strength and normal range of motion, no pitting or edema. No clubbing or cyanosis. Patient has pain to palpation of the left ribs, laterally and anterior aspect. She does have some mild bruising present. NEUROLOGICAL: Patient is alert and oriented x 3. Motor and sensory are also intact. Cranial nerves II through XII grossly intact. Symmetrical smile. Normal speech, normal gait. PSYCH: Normal mood, normal affect. SKIN: Warm, Dry, normal turgor, no rashes or lesions noted. Limitations: no limitations Course Vital Signs 08/12/20 06:44 Temperature 98 F Pulse Rate 78 Respiratory 18 Rate Blood Pressure 120/79 O2 Sat by Pulse 97 Oximetry Medical Decision Making - Medical Decision Making Patient is a 44-year-old female here for left-sided rib pain after she fell 2 days ago hitting her left ribs on her boat. She denies any other injuries from this fall. Rest of her exam is unremarkable except for left-sided rib pain. Signs are stable. X-rays today showed no acute abnormality. Discussed with patient this is most likely a rib contusion. I recommended alternating between Tylenol and Motrin for discomfort, ice or heat to the area. Also recommended breathing exercises to keep lungs healthy. She is stable for discharge and she is in agreement with this plan of care. She can follow up with her primary care physician. Return parameters were discussed with her and she verbalized und erstanding. Case discussed with Dr. Leo. Disposition Clinical Impression: Fall, Contusion of rib on left side Disposition: HOME SELF-CARE Condition: Stable Instructions (If sedation given, give patient instructions): Rib Contusion (ED) Additional Instructions: Please return to the Emergency Department if symptoms worsen or any other concerns. Alternate between Tylenol and ibuprofen for discomfort. May also apply ice and/or heat to the area. Breathing exercises every hour while you're awake as discussed. Muscle relaxer at night to help with spasms. Prescriptions: Cyclobenzaprine [Flexeril] 5 mg PO BID #15 tablet Is patient prescribed a controlled substance at d/c from ED?: No Referrals: Gorge Alvarez MD [Primary Care Provider] - 1-2 days Time of Disposition: 07:50
--- NOTE | 2020-08-12 07:38 | XR ---
EXAMINATION TYPE: XR ribs LT w pa chest xray DATE OF EXAM: 08/12/2020 COMPARISON: 11/27/2019 HISTORY: fall, pain TECHNIQUE: 5 views chest and ribs FINDINGS: The lungs are grossly clear. Cardiac silhouette is unremarkable. No definite displaced rib fractures. IMPRESSION: No definite displaced rib fractures.
[2020-08-12] MEDS ORDERED: traMADol 50 MG STARTER PACK 3 TAB BTL PO STA (07:48)
[2020-08-12] MEDS ORDERED: diazePAM 5 MG TAB PO STA (07:48)
== END 2020-08-12 07:56 | disposition home or self-care (01) ==
LOC: EC 06:34
DX: S20.212A Contusion of left front wall of thorax, initial encounter (principal); F32.9 Major depressive disorder, single episode, unspecified; F41.9 Anxiety disorder, unspecified; F90.9 Attention-deficit hyperactivity disorder, unspecified type; F17.200 Nicotine dependence, unspecified, uncomplicated; W01.198A Fall on same level from slipping, tripping and stumbling with subsequent striking against other object, initial encounter; Y92.62 Dock or shipyard as the place of occurrence of the external cause
CPT/HCPCS: 71101; 99284; 96372; J1885

== ENCOUNTER 2020-08-19 07:13 | Emergency (ER) | payer OTHER ==
[2020-08-19 07:22] VITALS: RESP 18; TEMP 98
[2020-08-19] MEDS ORDERED: HYDROmorphone 1 MG/ML 1 ML SYRINGE IVP STA (07:29)
--- NOTE | 2020-08-19 07:32 | ED ---
General Adult HPI - General Chief complaint: Back Pain/Injury Stated complaint: Rib Pain Time Seen by Provider: 08/19/20 07:23 Source: patient, RN notes reviewed Mode of arrival: ambulatory Limitations: no limitations - History of Present Illness Initial comments: Patient is a pleasant 44-year-old female presenting to the emergency Department with complaints of left side pain. Patient had a fall just over a week ago. Patient did have x-rays done on her ribs that were reported as normal. Patient is having continued discomfort. Discomfort is mostly of lower ribs however is also having discomfort in her abdomen. No dyspnea however there is pain with breaths. Discomfort is greatly increased with movement. - Related Data Home Medications Medication Instructions Recorded Confirmed ALPRAZolam [Xanax] 0.5 mg PO TID PRN 04/19/17 11/27/19 Methylphenidate HCl [Ritalin] 20 mg PO BID 09/15/19 11/27/19 PARoxetine HCL [Paxil] 20 mg PO DAILY 09/15/19 11/27/19 Diclofenac Sodium [Diclofenac 2 drop BOTH EYES BID 11/27/19 11/27/19 Sodium 0.1% Ophth Soln] guaiFENesin SYRUP 100MG/5ML 400 mg PO Q12H PRN 11/27/19 11/27/19 [Robitussin] Previous Rx's Medication Instructions Recorded Cyclobenzaprine [Flexeril] 5 mg PO BID #15 tablet 08/12/20 Cyclobenzaprine [Flexeril] 10 mg PO TID PRN #12 tablet 08/19/20 Allergies Allergy/AdvReac Type Severity Reaction Status Date / Time codeine Allergy Nausea & Verified 08/19/20 07:19 Vomiting Review of Systems ROS Statement: Those systems with pertinent positive or pertinent negative responses have been documented in the HPI. ROS Other: All systems not noted in ROS Statement are negative. Constitutional: Denies: fever Eyes: Denies: eye pain ENT: Denies: ear pain Respiratory: Reports: as per HPI. Denies: cough, dyspnea Cardiovascular: Denies: chest pain Endocrine: Denies: fatigue Gastrointestinal: Denies: abdominal pain Genitourinary: Denies: dysuria Musculoskeletal: Reports: as per HPI Skin: Denies: rash Neurological: Denies: weakness Past Medical History Past Medical History: No Reported History History of Any Multi-Drug Resistant Organisms: None Reported Past Surgical History: Section Additional Past Surgical History / Comment(s): [place] teeth extractions Additional Past Anesthesia/Blood Transfusion Reaction / Comment(s): Pt has never had general anesthesia. Past Psychological History: ADD/ADHD, Anxiety, Depression Smoking Status: Current every day smoker Past Alcohol Use History: Rare Past Drug Use History: None Reported - Past Family History Mother Additional Family Medical History / Comment(s): Mother has "heart problems". Heart disease runs in the females on mother's side of family. Father Family Medical History: Myocardial Infarction (AR) Additional Family Medical History / Comment(s): Father had a AR at the age of 45yrs. General Exam Limitations: no limitations General appearance: alert, in no apparent distress Head exam: Present: normocephalic Eye exam: Present: normal appearance Neck exam: Present: normal inspection Respiratory exam: Present: normal lung sounds bilaterally, chest wall tenderness (Left lower lateral chest wall) Cardiovascular Exam: Present: regular rate, normal rhythm Expanded Peripheral pulses: 2+: Posterior Tibialis (R), Posterior Tibialis (L) GI/Abdominal exam: Present: soft, tenderness (Moderate tenderness left flank). Absent: distended, guarding, rigid Extremities exam: Present: normal inspection Back exam: Present: normal inspection. Absent: tenderness, vertebral tenderness Neurological exam: Present: alert Psychiatric exam: Present: normal affect, normal mood Skin exam: Present: normal color Course Vital Signs 08/19/20 07:19 Temperature 98 F Pulse Rate 110 H Respiratory 18 Rate Blood Pressure 147/90 O2 Sat by Pulse 98 Oximetry Medical Decision Making - Medical Decision Making Patient reevaluated and still is and discomfort however is also improved and does not want further pain medication at this time. Patient and family updated on results and need for follow-up, specifically updated on concern regarding changes of the cervix. Specifically updated on need to follow-up with MANAGER ASSESSMENT as well as primary care physician as well as hepatomegaly. - Lab Data Result diagrams: 08/19/20 07:40 08/19/20 07:40 Lab Results 08/19/20 08/19/20 08/19/20 Range/Units 07:40 07:40 07:40 WBC 7.6 (3.8-10.6) k/uL RBC 4.27 (3.80-5.40) m/uL Hgb 13.7 (11.4-16.0) gm/dL Hct 40.5 (34.0-46.0) % MCV 94.9 (80.0-100.0) fL MCH 32.2 (25.0-35.0) pg MCHC 33.9 (31.0-37.0) g/dL RDW 13.6 (11.5-15.5) % Plt Count 289 (150-450) k/uL MPV 7.0 Neutrophils % 67 % Lymphocytes % 24 % Monocytes % 4 % Eosinophils % 2 % Basophils % 0 % Neutrophils # 5.1 (1.3-7.7) k/uL Lymphocytes # 1.8 (1.0-4.8) k/uL Monocytes # 0.3 (0-1.0) k/uL Eosinophils # 0.2 (0-0.7) k/uL Basophils # 0.0 (0-0.2) k/uL PT 9.5 (9.0-12.0) sec INR 0.9 (<1.2) APTT 21.2 L (22.0-30.0) sec Sodium (137-145) mmol/L Potassium (3.5-5.1) mmol/L Chloride (98-107) mmol/L Carbon Dioxide (22-30) mmol/L Anion Gap mmol/L BUN (7-17) mg/dL Creatinine (0.52-1.04) mg/dL Est GFR (CKD-EPI)AfAm (>60 ml/min/1.73 sqM) Est GFR (CKD-EPI)NonAf (>60 ml/min/1.73 sqM) Glucose (74-99) mg/dL Calcium (8.4-10.2) mg/dL Total Bilirubin (0.2-1.3) mg/dL AST (14-36) U/L ALT (4-34) U/L Alkaline Phosphatase (38-126) U/L Total Protein (6.3-8.2) g/dL Albumin (3.5-5.0) g/dL Urine Color Colorless Urine Appearance Clear (Clear) Urine pH 6.5 (5.0-8.0) Ur Specific [place] 1.003 (1.001-1.035) Urine Protein Negative (Negative) Urine Glucose (UA) Negative (Negative) Urine Ketones Negative (Negative) Urine Blood Negative (Negative) Urine Nitrite Negative (Negative) Urine Bilirubin Negative (Negative) Urine Urobilinogen <2.0 (<2.0) mg/dL Ur Leukocyte Esterase Negative (Negative) Blood Type Blood Type Recheck Bld Type Recheck Status Antibody Screen Spec Expiration Date 08/19/20 08/19/20 Range/Units 07:40 07:40 WBC (3.8-10.6) k/uL RBC (3.80-5.40) m/uL Hgb (11.4-16.0) gm/dL Hct (34.0-46.0) % MCV (80.0-100.0) fL MCH (25.0-35.0) pg MCHC (31.0-37.0) g/dL RDW (11.5-15.5) % Plt Count (150-450) k/uL MPV Neutrophils % % Lymphocytes % % Monocytes % % Eosinophils % % Basophils % % Neutrophils # (1.3-7.7) k/uL Lymphocytes # (1.0-4.8) k/uL Monocytes # (0-1.0) k/uL Eosinophils # (0-0.7) k/uL Basophils # (0-0.2) k/uL PT (9.0-12.0) sec INR (<1.2) APTT (22.0-30.0) sec Sodium 137 (137-145) mmol/L Potassium 4.1 (3.5-5.1) mmol/L Chloride 106 (98-107) mmol/L Carbon Dioxide 21 L (22-30) mmol/L Anion Gap 10 mmol/L BUN 10 (7-17) mg/dL Creatinine 0.57 (0.52-1.04) mg/dL Est GFR (CKD-EPI)AfAm >90 (>60 ml/min/1.73 sqM) Est GFR (CKD-EPI)NonAf >90 (>60 ml/min/1.73 sqM) Glucose 118 H (74-99) mg/dL Calcium 9.2 (8.4-10.2) mg/dL Total Bilirubin 0.1 L (0.2-1.3) mg/dL AST 51 H (14-36) U/L ALT 29 (4-34) U/L Alkaline Phosphatase 125 (38-126) U/L Total Protein 7.0 (6.3-8.2) g/dL Albumin 3.9 (3.5-5.0) g/dL Urine Color Urine Appearance (Clear) Urine pH (5.0-8.0) Ur Specific [place] (1.001-1.035) Urine Protein (Negative) Urine Glucose (UA) (Negative) Urine Ketones (Negative) Urine Blood (Negative) Urine Nitrite (Negative) Urine Bilirubin (Negative) Urine Urobilinogen (<2.0) mg/dL Ur Leukocyte Esterase (Negative) Blood Type B Positive Blood Type Recheck B Pos Bld Type Recheck Status No Antibody Screen NEGATIVE Spec Expiration Date 08/22/20202339 - Radiology Data Radiology results: report reviewed (Computed tomography scan chest abdomen pelvis shows no acute traumatic injury. Left cervix changes. Mild hepatomegaly.) Disposition Clinical Impression: Abdominal contusion, Contusion of rib on left side Disposition: HOME SELF-CARE Condition: Stable Instructions (If sedation given, give patient instructions): Contusion in Adults (ED), Rib Contusion (ED) Additional Instructions: Please do follow-up to primary care physician in the next couple days for recheck. You will also need to follow-up with MANAGER ASSESSMENT and have further exam done. Please have both physicians review CT results. Return for increased pain, difficulty breathing, change or worsening symptoms or other concerns. Prescription for muscle relaxer sent to pharmacy. Prescriptions: Cyclobenzaprine [Flexeril] 10 mg PO TID PRN #12 tablet PRN Reason: Pain Is patient prescribed a controlled substance at d/c from ED?: No Referrals: Gorge Alvarez MD [Primary Care Provider] - 1-2 days Jessie Chapin MD [STAFF PHYSICIAN] - 1-2 days Time of Disposition: 09:15
[2020-08-19 08:03] LABS: Basophils % (A) 0 %; Eosinophils # (A) 0.2 k/uL (0-0.7); Eosinophils % (A) 2 %; HCT 40.5 % (34.0-46.0); HGB 13.7 gm/dL (11.4-16.0); Lymphocytes # (A) 1.8 k/uL (1.0-4.8); Lymphocytes % (A) 24 %; MCH 32.2 pg (25.0-35.0); MCHC 33.9 g/dL (31.0-37.0); MCV 94.9 fL (80.0-100.0); Monocytes # (A) 0.3 k/uL (0-1.0); Monocytes % (A) 4 %; Neutrophils # (A) 5.1 k/uL (1.3-7.7); Neutrophils % (A) 67 %; Platelet Count 289 k/uL (150-450); RBC 4.27 m/uL (3.80-5.40); RDW 13.6 % (11.5-15.5); WBC 7.6 k/uL (3.8-10.6)
[2020-08-19 08:10] LABS: ALT 29 U/L (4-34); AST 51 U/L (14-36); African American GFR (CKD) >90 (>60 ml/min/1.73 sqM); Albumin 3.9 g/dL (3.5-5.0); Alkaline Phosphatase 125 U/L (38-126); Anion Gap 10 mmol/L; Blood Urea Nitrogen 10 mg/dL (7-17); Calcium 9.2 mg/dL (8.4-10.2); Carbon Dioxide 21 mmol/L (22-30); Chloride 106 mmol/L (98-107); Glucose 118 mg/dL (74-99); Non-African American GFR(CKD) >90 (>60 ml/min/1.73 sqM); Potassium 4.1 mmol/L (3.5-5.1); Sodium 137 mmol/L (137-145); Total Bilirubin 0.1 mg/dL (0.2-1.3)
[2020-08-19 08:19] LABS: INR 0.9 (<1.2); Prothrombin Time 9.5 sec (9.0-12.0)
[2020-08-19 08:20] LABS: Appearance,Urine Clear (Clear); Bilirubin,Urine Negative (Negative); Blood,Urine Negative (Negative); Color,Urine Colorless; Glucose,Urine (UA) Negative (Negative); Ketones,Urine Negative (Negative); Leukocyte Esterase,Urine Negative (Negative); Nitrite,Urine Negative (Negative); PH, Urine 6.5 (5.0-8.0); Protein,Urine Negative (Negative); Specific Gravity,Urine 1.003 (1.001-1.035); Urobilinogen,Urine <2.0 mg/dL (<2.0)
[2020-08-19 08:33] LABS: Partial Thromboplastin Time 21.2 sec (22.0-30.0)
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
[2020-08-19] MEDS ORDERED: traMADol 50 MG STARTER PACK 3 TAB BTL PO STA (09:13)
[2020-08-19 09:29] VITALS: BP 137/92; PULSE 94
== END 2020-08-19 09:29 | disposition home or self-care (01) ==
LOC: EC 07:13
DX: S30.1XXA Contusion of abdominal wall, initial encounter (principal); S20.212A Contusion of left front wall of thorax, initial encounter; F32.9 Major depressive disorder, single episode, unspecified; F90.9 Attention-deficit hyperactivity disorder, unspecified type; F41.9 Anxiety disorder, unspecified; F17.200 Nicotine dependence, unspecified, uncomplicated; W18.30XA Fall on same level, unspecified, initial encounter
CPT/HCPCS: 36415; 86900; 86901; 80053; 85025; 85610; 85730; 86850; 81003; 71260; 74177; 99284; 96374; J1170; Q9967

== ENCOUNTER → 2020-10-08 | Outpatient (CLI) | payer OTHER | END | disposition home or self-care (01) | LOC: LABWHC1 14:10 | PROVIDERS: ATTEND Family Medicine | DX: Z20.822 Contact with and (suspected) exposure to COVID-19 (principal) | CPT/HCPCS: U0003; C9803; U0005 ==

== ENCOUNTER → 2021-04-29 | Outpatient (CLI) | payer OTHER ==
--- NOTE | 2021-04-29 09:52 | XR ---
EXAMINATION TYPE: XR chest 2V DATE OF EXAM: 04/29/2021 COMPARISON: 08/12/2020 HISTORY: 45-year-old female R05, cough TECHNIQUE: Frontal and lateral views FINDINGS: The cardiomediastinal silhouette, aorta, and pulmonary vasculature are within normal limits. Hazy den sities relating to overlying soft tissue. Otherwise, lungs and pleural spaces are clear. IMPRESSION: No acute cardiopulmonary process.
== END ==
LOC: RADXRMAIN 07:23
PROVIDERS: ATTEND Family Medicine
DX: R05.9 Cough, unspecified (principal)
CPT/HCPCS: 71046

== ENCOUNTER 2021-07-09 07:36 | Emergency (ER) | payer OTHER ==
[2021-07-09 07:44] VITALS: TEMP 98.2
--- NOTE | 2021-07-09 08:14 | ED ---
General Adult HPI - General Chief complaint: Upper Respiratory Infection Stated complaint: Test for covid Time Seen by Provider: 07/09/21 07:37 Source: patient Mode of arrival: ambulatory Limitations: no limitations - History of Present Illness Initial comments: Dictation was produced using [employer] dictation software. please excuse any grammatical, word or spelling errors. 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 Patient is symptomatic for the last 2 days. States that she's been having a productive cough, sore throat. Several months ago patient had contracted Covid. She recovered however is having a persistent cough. Patient went to work today and was told to come to the emergency department to be tested. Patient has any medical comorbidities. She takes Singulair is the only medication. The ROS documented in this emergency department record has been reviewed and confirmed by me. Those systems with pertinent positive or negative responses have been documented in the HPI. All other systems are other negative and/or noncontributory. PHYSICAL EXAM: General Impression: Alert and oriented x3, not in acute distress HEENT: Normocephalic atraumatic, extra-ocular movements intact, pupils equal and reactive to light bilaterally, mucous membranes moist. Cardiovascular: Heart regular rate and rhythm Chest: Able to complete full sentences, no retractions, no tachypnea, clear to auscultation bilaterally Abdomen: abdomen soft, non-tender, non-distended, no organomegaly Musculoskeletal: Pulses present and equal in all extremities, no peripheral edema Motor: no focal deficits noted Neurological: CN II-XII grossly intact, no focal motor or sensory deficits noted Skin: Intact with no visualized rashes Psych: Normal affect and mood ED course: 45-year-old female presents to the emergency department for symptoms of respiratory infection. Vital Signs upon arrival shows heart rate of 120, rest of vital signs within acceptable limits. Code test negative. Influenza test negative. Strep test is negative. Pending throat cultures. Patient likely has a viral URI. Patient discharged advised follow-up with primary care doctor. Repeat heart rate is improved to 102. - Related Data Home Medications Medication Instructions Recorded Confirmed ALPRAZolam [Xanax] 0.5 mg PO TID PRN 04/19/17 11/27/19 Methylphenidate HCl [Ritalin] 20 mg PO BID 09/15/19 11/27/19 PARoxetine HCL [Paxil] 20 mg PO DAILY 09/15/19 11/27/19 Diclofenac Sodium [Diclofenac 2 drop BOTH EYES BID 11/27/19 11/27/19 Sodium 0.1% Ophth Soln] guaiFENesin SYRUP 100MG/5ML 400 mg PO Q12H PRN 11/27/19 11/27/19 [Robitussin] Previous Rx's Medication Instructions Recorded Cyclobenzaprine [Flexeril] 5 mg PO BID #15 tablet 08/12/20 Cyclobenzaprine [Flexeril] 10 mg PO TID PRN #12 tablet 08/19/20 Allergies Allergy/AdvReac Type Severity Reaction Status Date / Time codeine Allergy Nausea & Verified 07/09/21 07:44 Vomiting Review of Systems ROS Statement: Those systems with pertinent positive or pertinent negative responses have been documented in the HPI. ROS Other: All systems not noted in ROS Statement are negative. Past Medical History Past Medical History: No Reported History History of Any Multi-Drug Resistant Organisms: None Reported Past Surgical History: Section Additional Past Surgical History / Comment(s): [place] teeth extractions Additional Past Anesthesia/Blood Transfusion Reaction / Comment(s): Pt has never had general anesthesia. Past Psychological History: ADD/ADHD, Anxiety, Depression Smoking Status: Current every day smoker Past Alcohol Use History: Rare Past Drug Use History: None Reported - Past Family History Mother Additional Family Medical History / Comment(s): Mother has "heart problems". Heart disease runs in the females on mother's side of family. Father Family Medical History: Myocardial Infarction (NH) Additional Family Medical History / Comment(s): Father had a NH at the age of 45yrs. General Exam Limitations: no limitations Course Vital Signs 07/09/21 07/09/21 07:40 09:05 Temperature 98.2 F Pulse Rate 120 H 102 H Respiratory 18 20 Rate Blood Pressure 161/86 142/84 O2 Sat by Pulse 98 99 Oximetry Medical Decision Making - Lab Data Lab Results 07/09/21 07/09/21 07/09/21 Range/Units 07:45 08:16 08:16 Coronavirus (PCR) Not Detected (Not Detectd) Influenza Type A RNA Not Detected (Not Detectd) Influenza Type B (PCR) Not Detected (Not Detectd) Group A Strep Rapid Negative (Negative) Disposition Clinical Impression: Common cold Disposition: HOME SELF-CARE Condition: Fair Instructions (If sedation given, give patient instructions): Upper Respiratory Infection (ED) Is patient prescribed a controlled substance at d/c from ED?: No Referrals: Gorge Alvarez MD [Primary Care Provider] - 1-2 days
[2021-07-09 09:06] VITALS: BP 142/84; PULSE 102; RESP 20
== END 2021-07-09 10:00 | disposition home or self-care (01) ==
LOC: EC 07:36
DX: J00 Acute nasopharyngitis [common cold] (principal); F17.200 Nicotine dependence, unspecified, uncomplicated; Z20.822 Contact with and (suspected) exposure to COVID-19; Z88.5 Allergy status to narcotic agent
CPT/HCPCS: 87081; 87430; 87502; 87635; 99283

== ENCOUNTER → 2021-08-15 | Outpatient (CLI) | payer OTHER ==
--- NOTE | 2021-08-15 10:16 | CT ---
EXAMINATION TYPE: CT sinus wo con DATE OF EXAM: 08/15/2021 COMPARISON: None HISTORY: Coughing up blood. CT DLP: 630.3 mGycm. Automated Exposure Control for Dose Reduction was Utilized. TECHNIQUE: CT scan of the sinuses is performed without contrast, axial images are obtained, coronal r eformatted images are also reviewed. FINDINGS: The paranasal sinuses including the frontal, ethmoid, sphenoid, and maxillary sinuses bila terally are well-aerated without abnormal opacification. The ostiomeatal complex is patent bilateral ly on the coronal images. Visualized portion of mastoid air cells show no abnormal opacification. The globes are intact bilate rally. IMPRESSION: The sinuses are clear and the ostiomeatal complex is patent bilaterally.
== END | disposition home or self-care (01) ==
LOC: RADCTMAIN 09:20
PROVIDERS: ATTEND Internal Medicine Critical Care Medicine
DX: R05.9 Cough, unspecified (principal); R04.2 Hemoptysis
CPT/HCPCS: 70486

== ENCOUNTER → 2021-11-05 | Outpatient (CLI) | payer OTHER ==
--- NOTE | 2021-11-05 09:09 | USB ---
Reason for Exam: Clinical finding. Patient History: Menarche at age 11. First Full-Term at age 19. Hormonal Contraceptives for 3 years from age 17 until age 20. Risk Values: Miriam 5 year model risk: 0.8%. NCI Lifetime model risk: 8.3%. Technique: Method: Targeted. Prior Study Comparison: 10/10/2015 Bilateral Screening Mammogram, [facility]. 10/16/2015 Left Diagnostic Mammogram, [facility]. Findings: The upper outer quadrant of the left breast, the axilla of the left breast and the retroareolar of the left breast were scanned. There is an anechoic cyst measuring up to 2.2 x 1.6 x 2.2 cm 6 cm from the nipple at 1:00. There is posterior acoustic enhancement. Findings are compatible with simple cyst. No solid or cystic masses are identified. Overall Assessment: Benign, BI-RAD 2 Management: Screening Mammogram of both breasts in 1 year. A clinical breast exam by your physician is recommended on an annual basis and results should be correlated with mammographic findings. Electronically signed and approved by: Kranthi Oliver DO
--- NOTE | 2021-11-05 09:10 | MM ---
Reason for Exam: Clinical finding. Last mammogram was performed 6 year(s) and 1 month(s) ago. Patient History: Menarche at age 11. First Full-Term at age 19. Hormonal Contraceptives for 3 years from age 17 until age 20. Risk Values: Miriam 5 year model risk: 0.8%. NCI Lifetime model risk: 8.3%. Tissue Density: The breast tissue is heterogeneously dense. This may lower the sensitivity of mammography. Findings: Analyzed By CAD. There is an mass measuring 2.2 x 1.6 x 2.2 cm 6 cm from the nipple at 1:00. Findings were compatible with simple cyst on ultrasound same day. Overall Assessment: Benign, BI-RAD 2 Management: Screening Mammogram of both breasts in 1 year. A clinical breast exam by your physician is recommended on an annual basis and results should be correlated with mammographic findings. This exam should not preclude additional follow-up of suspicious palpable abnormalities. Results were given to the patient verbally at the time of exam. Electronically signed and approved by: Kranthi Oliver DO
== END | disposition home or self-care (01) ==
LOC: RADMAMWWP 08:06
PROVIDERS: ATTEND Obstetrics & Gynecology
DX: R92.8 Other abnormal and inconclusive findings on diagnostic imaging of breast (principal); N60.02 Solitary cyst of left breast
CPT/HCPCS: 77062; 77066

== ENCOUNTER 2022-03-27 09:01 | Emergency (ER) | payer OTHER ==
[2022-03-27] MEDS ORDERED: LORazepam 2 MG/ML INJ IV STA (09:26)
[2022-03-27 09:55] VITALS: RESP 20
[2022-03-27 10:20] LABS: ALT 60 U/L (4-34); African American GFR (CKD) >90 (>60 ml/min/1.73 sqM); Albumin 4.1 g/dL (3.5-5.0); Anion Gap 12 mmol/L; Blood Urea Nitrogen 5 mg/dL (7-17); Carbon Dioxide 18 mmol/L (22-30); Chloride 106 mmol/L (98-107); Glucose 149 mg/dL (74-99); Non-African American GFR(CKD) >90 (>60 ml/min/1.73 sqM); Sodium 136 mmol/L (137-145); Total Bilirubin 1.1 mg/dL (0.2-1.3); Total Protein 7.5 g/dL (6.3-8.2)
[2022-03-27 10:29] LABS: AST 103 U/L (14-36); Alkaline Phosphatase 92 U/L (38-126); Potassium 3.4 mmol/L (3.5-5.1)
--- NOTE | 2022-03-27 10:33 | CT ---
EXAMINATION TYPE: CT soft tissue neck w con DATE OF EXAM: 03/27/2022 COMPARISON: None HISTORY: Dysphagia, laryngitis, abnormal laryngoscope for [address] DLP: 316.3 mGycm CONTRAST: CT scan of the neck is performed with IV Contrast, patient injected with 100 ml mL of Isovue 300. Contrast enhanced CT of the neck was performed from the skull base through the lung apices. AIRWAY: The supraglottic, glottic, and subglottic portions of the airway appear patent and free of mass. SALIVARY GLANDS: The submandibular and parotid glands are free of mass or inflammatory process. THYROID GLAND: No nodules or masses seen. LYMPH NODES: No adenopathy seen greater than 1cm. LUNG APICES: No nodule or mass is seen. OTHER: Vascular structures are patent. No significant degenerative change of the cervical spine. N o abscess seen. IMPRESSION: No discrete abnormality seen to account for the patient's symptoms
--- NOTE | 2022-03-27 11:07 | ED ---
ENT HPI - General Chief complaint: ENT Stated complaint: Neck pain Time Seen by Provider: 03/27/22 09:17 Source: patient, RN notes reviewed Mode of arrival: ambulatory Limitations: no limitations - History of Present Illness Initial comments: This a 46-year-old female presents emergency Department with chief complaint of ongoing sore throat, hoarse voice and occasional difficulty swallowing. Patient states that she had a laryngoscope by Dr. Russo in which there was some irritation and they believe this is from reflux patient was started on predn isone, as reflux medication states that has not helped. She is scheduled for CT but they're waiting prior off. She states that symptoms are getting worse. She does admit that she is a smoker. Patient states her some drainage backs of her throat and she is constant coughing up stuff. Patient denies any abdominal pain no chest pain no headache. - Related Data Home Medications Medication Instructions Recorded Confirmed ALPRAZolam [Xanax] 0.5 mg PO TID PRN 04/19/17 11/27/19 Methylphenidate HCl [Ritalin] 20 mg PO BID 09/15/19 11/27/19 PARoxetine HCL [Paxil] 20 mg PO DAILY 09/15/19 11/27/19 Diclofenac Sodium [Diclofenac 2 drop BOTH EYES BID 11/27/19 11/27/19 Sodium 0.1% Ophth Soln] guaiFENesin SYRUP 100MG/5ML 400 mg PO Q12H PRN 11/27/19 11/27/19 [Robitussin] Previous Rx's Medication Instructions Recorded Cyclobenzaprine [Flexeril] 5 mg PO BID #15 tablet 08/12/20 Cyclobenzaprine [Flexeril] 10 mg PO TID PRN #12 tablet 08/19/20 Allergies Allergy/AdvReac Type Severity Reaction Status Date / Time codeine Allergy Nausea & Verified 03/27/22 09:12 Vomiting Review of Systems ROS Statement: Those systems with pertinent positive or pertinent negative responses have been documented in the HPI. ROS Other: All systems not noted in ROS Statement are negative. Past Medical History Past Medical History: Asthma History of Any Multi-Drug Resistant Organisms: None Reported Past Surgical History: Section Additional Past Surgical History / Comment(s): Gates teeth extractions Additional Past Anesthesia/Blood Transfusion Reaction / Comment(s): Pt has never had general anesthesia. Past Psychological History: ADD/ADHD, Anxiety, Depression Smoking Status: Former smoker Past Alcohol Use History: Rare Past Drug Use History: None Reported - Past Family History Mother Additional Family Medical History / Comment(s): Mother has "heart problems". Heart disease runs in the females on mother's side of family. Father Family Medical History: Myocardial Infarction (OR) Additional Family Medical History / Comment(s): Father had a OR at the age of 45yrs. General Exam Limitations: no limitations General appearance: alert, in no apparent distress Head exam: Present: atraumatic, normocephalic, normal inspection Eye exam: Present: normal appearance, PERRL, EOMI. Absent: scleral icterus, conjunctival injection, periorbital swelling ENT exam: Present: mucous membranes moist, TM's normal bilaterally, normal external ear exam. Absent: normal exam, normal oropharynx (Large amount of postnasal drainage noted) Neck exam: Present: normal inspection, full ROM. Absent: tenderness, meningismus, lymphadenopathy Respiratory exam: Present: normal lung sounds bilaterally. Absent: respiratory distress, wheezes, rales, rhonchi, stridor Cardiovascular Exam: Present: normal rhythm, tachycardia, normal heart sounds. Absent: systolic murmur, diastolic murmur, rubs, gallop, clicks Course Vital Signs 03/27/22 03/27/22 09:10 09:54 Temperature 98.2 F Pulse Rate 121 H 94 Respiratory 24 20 Rate Blood Pressure 217/117 124/93 O2 Sat by Pulse 99 97 Oximetry Medical Decision Making - Medical Decision Making Was pt. sent in by a medical professional or institution (, PA, CLINICAL PROVIDER TRAINER, urgent care, hospital, or fci...) When possible be specific @ -No Did you speak to anyone other than the patient for history (EMS, parent, family, police, friend...)? What history was obtained from this source @ -No Did you review nursing and triage notes (agree or disagree)? Why? @ -I reviewed and agree with nursing and triage notes Were old charts reviewed (outside hosp., previous admission, EMS record, old EKG, old radiological studies, urgent care reports/EKG's, fci records)? Report findings @ -No old charts were reviewed Differential Diagnosis (chest pain, altered mental status, abdominal pain women, abdominal pain men, vaginal bleeding, weakness, fever, dyspnea, syncope, headache, dizziness, GI bleed, back pain, seizure, CVA, palpatations, mental health)? @ -Pharyngitis, laryngal mass, GERD, acute pharyngitis, postnasal drainage, EKG interpreted by me (3pts min.). @ -None X-rays interpreted by me (1pt min.). @ -None done CT interpreted by me (1pt min.). @ -CT is unremarkable no evidence of mass, narrowing or any other acute process U/S interpreted by me (1pt. min.). @ -None done What testing was considered but not performed or refused? (CT, X-rays, U/S, labs)? Why? @ -None What meds were considered but not given or refused? Why? @ -None Did you discuss the management of the patient with other professionals (professionals i.e. , PA, CLINICAL PROVIDER TRAINER, lab, RT, psych nurse, social media sr strategy manager, lime sludge mixer, teacher, navigation officer, outpatient case manager)? Give summary @ -No Was smoking cessation discussed for >3mins.? @ -I discussed smoking cessation for greater than 3 minutes. The risk of smoking were discussed with the patient including but not limited to risks of cancer, stroke, coronary artery disease and COPD. Also discussed with patient were multiple methods of quitting smoking. Lastly we discussed the financial cost of smoking. Was critical care preformed (if so, how long)? @ -No Were there social determinants of health that impacted care today? How? (Homel essness, low income, unemployed, alcoholism, drug addiction, transportation, low edu. Level, literacy, decrease access to med. care, detention, rehab)? @ -No Was there de-escalation of care discussed even if they declined (Discuss DNR or withdrawal of care, Hospice)? DNR status @ -No What co-morbidities impacted this encounter? (DM, HTN, Smoking, COPD, CAD, Cancer, CVA, ARF, Chemo, Hep., AIDS, mental health diagnosis, sleep apnea, morbid obesity)? @ -Smoking history Was patient admitted / discharged? Hospital course, mention meds given and route, prescriptions, significant lab abnormalities, going to OR and other pertinent info. @ -Discharged patient's had recent laryngoscope with Dr. Mills, patient CT is unremarkable patient was prescribed antibiotics yesterday will start this course of antibiotics she's had no improvement with reflux medication or steroi ds. Undiagnosed new problem with uncertain prognosis? @ -No Drug Therapy requiring intensive monitoring for toxicity (Heparin, Nitro, Insulin, Cardizem)? @ -No Were any procedures done? @ -No Diagnosis/symptom? @ -Chronic laryngitis Acute, or Chronic, or Acute on Chronic? @ -Chronic Uncomplicated (without systemic symptoms) or Complicated (systemic symptoms)? @ -Uncomplicated Side effects of treatment? @ -No Exacerbation, Progression, or Severe Exacerbation? @ -No Poses a threat to life or bodily function? How? (Chest pain, USA, OR, pneumonia, PE, COPD, DKA, ARF, appy, cholecystitis, CVA, Diverticulitis, Homicidal, Suicidal, threat to staff... and all critical care pts) @ -No - Lab Data Result diagrams: 03/27/22 09:51 Lab Results 03/27/22 Range/Units 09:51 Sodium 136 L (137-145) mmol/L Potassium 3.4 L (3.5-5.1) mmol/L Chloride 106 (98-107) mmol/L Carbon Dioxide 18 L (22-30) mmol/L Anion Gap 12 mmol/L BUN 5 L (7-17) mg/dL Creatinine 0.54 (0.52-1.04) mg/dL Est GFR (CKD-EPI)AfAm >90 (>60 ml/min/1.73 sqM) Est GFR (CKD-EPI)NonAf >90 (>60 ml/min/1.73 sqM) Glucose 149 H (74-99) mg/dL Calcium 9.0 (8.4-10.2) mg/dL Total Bilirubin 1.1 (0.2-1.3) mg/dL AST 103 H (14-36) U/L ALT 60 H (4-34) U/L Alkaline Phosphatase 92 (38-126) U/L Total Protein 7.5 (6.3-8.2) g/dL Albumin 4.1 (3.5-5.0) g/dL Disposition Clinical Impression: Laryngitis, Painful swallowing Disposition: HOME SELF-CARE Condition: Stable Instructions (If sedation given, give patient instructions): Dysphagia (ED) Additional Instructions: Please return to the Emergency Department if symptoms worsen or any other concerns. Is patient prescribed a controlled substance at d/c from ED?: No Referrals: Gorge Alvarez MD [Primary Care Provider] - 1-2 days Time of Disposition: 12:21
[2022-03-27 12:41] VITALS: BP 133/94; PULSE 98; TEMP 98.5
== END 2022-03-27 12:42 | disposition home or self-care (01) ==
LOC: EC 09:01
DX: J04.0 Acute laryngitis (principal); J45.909 Unspecified asthma, uncomplicated; F90.9 Attention-deficit hyperactivity disorder, unspecified type; F41.9 Anxiety disorder, unspecified; F32.A Depression, unspecified; Z87.891 Personal history of nicotine dependence; Z88.5 Allergy status to narcotic agent
CPT/HCPCS: 36415; 80053; 70491; 99284; 96374; J2060; Q9967

== ENCOUNTER → 2023-08-09 | Outpatient (CLI) | payer SELFPAY ==
[2023-08-09 14:27] LABS: HGB 8.5 g/dL (12.0-15.0); MCHC 30.4 g/dL (32.0-37.0); MCV 102.2 FL (80.0-97.0); NRBC Per 100 WBC 0.03 X 10*3/uL (0.00-0.01); Platelet Count 409 X 10*3/uL (140-440); RBC 2.74 X 10*6/uL (4.10-5.20); RDW 23.5 % (11.5-14.5); WBC 6.07 X 10*3/uL (4.50-10.00)
[2023-08-09 14:49] LABS: T4, Free (Free Thyroxine) 1.65 ng/dL (0.80-1.80)
[2023-08-09 14:56] LABS: ALT 25 U/L (8-44); AST 86 U/L (13-35); Albumin 3.7 g/dL (3.8-4.9); Albumin/Globulin Ratio 1.16 Ratio (1.60-3.17); Alkaline Phosphatase 142 U/L (41-126); Blood Urea Nitrogen 15.2 mg/dL (9.0-27.0); Calcium 9.5 mg/dL (8.7-10.3); Carbon Dioxide 22.3 mmol/L (21.6-31.8); Chloride 91 mmol/L (96-109); Globulin 3.2 g/dL (1.6-3.3); Glucose 95 mg/dL (70-110); Potassium 2.7 mmol/L (3.5-5.5); Sodium 134 mmol/L (135-145); Total Bilirubin 3.3 mg/dL (0.3-1.2); Total Protein 6.9 g/dL (6.2-8.2)
[2023-08-09 15:02] LABS: Anisocytosis (M) 2+; Basophils # (A) 0.03 X 10*3/uL (0.00-0.10); Basophils % (A) 0.5 %; Eosinophils # (A) 0.07 X 10*3/uL (0.04-0.35); Eosinophils % (A) 1.2 %; Lymphocytes # (A) 1.94 X 10*3/uL (0.90-5.00); Macrocytosis (M) 2+; Microcytosis (M) 2+; Monocytes # (A) 0.42 X 10*3/uL (0.20-1.00); Monocytes % (A) 6.9 %; Neutrophils # (A) 3.59 X 10*3/uL (1.80-7.70); Neutrophils % (A) 59.1 %; Stomatocytes 2+
== END | disposition home or self-care (01) ==
LOC: LABWHC1 08:46
PROVIDERS: ATTEND Family Medicine
DX: K21.9 Gastro-esophageal reflux disease without esophagitis (principal); R53.83 Other fatigue
CPT/HCPCS: 36415; 80053; 84439; 84443; 85025

== ENCOUNTER → 2023-08-17 | Outpatient (CLI) | payer SELFPAY ==
[2023-08-17 10:02] LABS: Anisocytosis Moderate; Basophils % (A) 1 %; Eosinophils # (A) 0.1 k/uL (0-0.7); Eosinophils % (A) 1 %; HCT 31.5 % (34.0-46.0); HGB 9.1 gm/dL (11.4-16.0); Hypochromasia Marked; Lymphocytes # (A) 1.5 k/uL (1.0-4.8); Lymphocytes % (A) 21 %; MCH 31.4 pg (25.0-35.0); MCHC 28.8 g/dL (31.0-37.0); MCV 109.1 fL (80.0-100.0); Macrocytosis Marked; Mean Platelet Volume 8.4; Monocytes # (A) 0.3 k/uL (0-1.0); Monocytes % (A) 4 %; Neutrophils # (A) 5.2 k/uL (1.3-7.7); Neutrophils % (A) 73 %; Platelet Count 580 k/uL (150-450); RBC 2.88 m/uL (3.80-5.40); RDW 23.2 % (11.5-15.5); WBC 7.1 k/uL (3.8-10.6)
[2023-08-17 15:21] LABS: % Iron Saturation 24.21 (12.00-45.00); ALT 38 U/L (8-44); AST 89 U/L (13-35); Albumin 3.7 g/dL (3.8-4.9); Albumin/Globulin Ratio 1.16 Ratio (1.60-3.17); Alkaline Phosphatase 140 U/L (41-126); Calcium 9.4 mg/dL (8.7-10.3); Carbon Dioxide 27.1 mmol/L (21.6-31.8); Chloride 97 mmol/L (96-109); Globulin 3.2 g/dL (1.6-3.3); Glucose 151 mg/dL (70-110); Iron 61 UG/DL (50-170); Potassium 4.5 mmol/L (3.5-5.5); Sodium 142 mmol/L (135-145); Total Bilirubin 0.6 mg/dL (0.3-1.2); Total Iron Binding Capacity 252 UG/DL (228-460); Total Protein 6.9 g/dL (6.2-8.2)
[2023-08-17 15:30] LABS: Hepatitis B Surface Antigen Nonreactive (Nonreactive); Hepatitis C IgG Antibody Nonreactive (Nonreactive)
[2023-08-17 15:31] LABS: Protein, Total 6.9 g/dL (6.2-8.2)
[2023-08-17 15:53] LABS: Ceruloplasmin 24.1 mg/dL (20.0-60.0)
[2023-08-18 20:38] LABS: Albumin 3.27 g/dL (3.80-4.90); Gamma Globulin 1.39 g/dL (0.70-1.50)
== END | disposition home or self-care (01) ==
LOC: LABWHC1 08:48
PROVIDERS: ATTEND Internal Medicine Gastroenterology
DX: R74.01 Elevation of levels of liver transaminase levels (principal)
CPT/HCPCS: 36415; 80053; 81596; 82103; 82105; 82390; 82728; 83516; 83540; 83550; 84165; 85025; 86038; 86803; 87340

== ENCOUNTER → 2023-08-25 | Outpatient (CLI) | payer OTHER ==
--- NOTE | 2023-08-25 09:49 | US ---
EXAMINATION TYPE: US abdomen complete DATE OF EXAM: 08/25/2023 COMPARISON: CT chest abdomen pelvis 08/19/2020 CLINICAL INDICATION: Female, 47 years old with history of R74.01 ELEVATION OF LEVELS OF LIVER TRANSAM INASE L; stopped eating due to stress 1 year ago, lost 50lbs, has food aversion TECHNIQUE: Multiple sonographic images of the abdomen are obtained. FINDINGS: EXAM MEASUREMENTS: Liver Length: 19.4 cm Gallbladder Wall: 0.2 cm CBD: 0.6 cm Spleen: 8.4 cm Right Kidney: 10.1 X 5.3 X 4.2 cm Left Kidney: 10.1 X 4.1 X 5.0 cm Pancreas: wnl Liver: enlarged and difficult to penetrate Gallbladder: phrygian cap Evidence for sonographic Arreguin's sign: no CBD: wnl Spleen: wnl Right Kidney: wnl Left Kidney: wnl Upper IVC: wnl Abd Aorta: wnl The liver is diffusely hyperechoic. No focal lesion identified. The liver is enlarged. The intrahepat ic portion of the IVC and proximal abdominal aorta are within normal limits. There is no evidence of cholelithiasis. Gallbladder phrygian cap identified. Common bile duct is unremarkable. The visuali zed portions of the pancreas are homogenous. The spleen is unremarkable. Kidneys are symmetric and free of hydronephrosis. No renal lesions are seen. Cortical medullary differentiation is maintained. IMPRESSION: Hepatomegaly with diffuse fatty infiltration.
== END | disposition home or self-care (01) ==
LOC: RADUSWWP 07:44
PROVIDERS: ATTEND Internal Medicine Gastroenterology
DX: K76.0 Fatty (change of) liver, not elsewhere classified (principal); R74.01 Elevation of levels of liver transaminase levels; R16.0 Hepatomegaly, not elsewhere classified
CPT/HCPCS: 76700

== ENCOUNTER 2023-09-21 06:19 | Day surgery (SDC) | payer OTHER ==
[2023-09-21 06:47] VITALS: TEMP 97
[2023-09-21] MEDS: LACTATED RINGERS 1,000 ML IV SCH (06:54)
[2023-09-21] MEDS: IV FLUID CONTINUATION 1,000 ML IV ONE (06:55)
[2023-09-21 06:56] LABS: Glucose,Whole Blood 165 mg/dL (70-110)
[2023-09-21] MEDS ORDERED: PROPOFOL 10 MG/ML 20 ML VIAL IV ONE (07:23)
[2023-09-21] MEDS ORDERED: LIDOCAINE 2% (PF) 20 MG/ML 5 ML VIAL ONE (07:23)
--- NOTE | 2023-09-21 07:43 | P.PCN ---
Date of Procedure: 09/21/23 Procedure(s) Performed: Brief history: Patient is a pleasant 47-year-old white female scheduled for an elective upper endoscopy as well as colonoscopy as a part of evaluation of abdominal pain, intermittent nausea vomiting change in bowel habits and progressive weight loss of 60 pounds in the last 1 year duration Procedure performed: Esophagogastroduodenoscopy with biopsy Colonoscopy with biopsy and snare polypectomy Preoperative diagnosis: Nausea vomiting/abdominal pain Change in bowel habits and progressive weight loss of 60 pounds in 1 year duration Anesthesia: MAC Procedure: After informed consent was obtained from the patient was brought into the endoscopy unit and IV sedation was administered by anesthesia under continuous monitoring. Initially upper endoscopy was done. The Olympus GF 160 video endoscope was inserted inserted into the mouth and esophagus intubated without any difficulty and was gradually advanced into the stomach and duodenum and carefully examined. The bulb and second part of the duodenum appeared normal. Biopsies were done from the duodenum to evaluate for celiac disease. The scope was then withdrawn into the stomach adequately insufflated with air and upon careful examination the antrum had linear areas of erythema consistent with gastritis and biopsies were done from this area. Mucosa of the body, cardia and fundus appeared normal. The scope was then withdrawn into the esophagus. The GE junction was located at 40 cm to the incisors. It appeared regular with no erythema erosions or ulcerations. In the proximal esophagus there were few whitish plaques identified suspicious for Genia esophagitis and multiple biopsies were done from this area.. Patient tolerated the procedure well. At this time the patient continued to remain sedation. Initial digital rectal examination was normal. Olympus CF 160 video colonoscope was then inserted into the rectum and gradually advanced to the cecum without any difficulty. Careful examination was performed as the scope was gradually being withdrawn. The prep was excellent. The cecum had a 6 mm sessile polyp removed by cold snare polypectomy. Rest of the, ascending colon, transverse colon, descending colon, sigmoid colon and rectum appeared normal. There was a 3 mm polyp that was remov ed by cold biopsy. Retroflexion was performed in the rectum and no lesions were noted. Patient tolerated the procedure well. Impression: 1. Upper endoscopy revealed mild antral gastritis, small hiatal hernia and small whitish plaques in the proximal esophagus status post biopsies to rule out Genia esophagitis 2. Colonoscopy revealed a 6 mm cecal polyp status post cold snare polypectomy and a 3 mm rectal polyp status post cold biopsy Recommendations: Findings of this examination were discussed with the patient as well as her family. She was advised to follow-up with the biopsy results. If the biopsy reveals adenoma, recommended repeat colonoscopy in 5 years.
[2023-09-21 07:55] VITALS: RESP 16
[2023-09-21 08:31] VITALS: PULSE 83
[2023-09-21 08:33] VITALS: BP 102/70
== END 2023-09-21 08:46 | disposition home or self-care (01) ==
LOC: ORWHC2ENDO 06:19
PROVIDERS: ATTEND Internal Medicine Gastroenterology
DX: D12.0 Benign neoplasm of cecum (principal); K29.70 Gastritis, unspecified, without bleeding; B37.81 Candidal esophagitis; K44.9 Diaphragmatic hernia without obstruction or gangrene; J45.909 Unspecified asthma, uncomplicated; K21.9 Gastro-esophageal reflux disease without esophagitis; F41.9 Anxiety disorder, unspecified; F32.A Depression, unspecified; F17.210 Nicotine dependence, cigarettes, uncomplicated; Z79.51 Long term (current) use of inhaled steroids
CPT/HCPCS: 45380; 45385; 43239; J2704; J2001; 88305; 88312